=== PATIENT | female | born 2000 | race Caucasian/White ===

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

== ENCOUNTER 2021-01-20 12:05 | Inpatient (IN) | payer BC, MEDICAID, SELFPAY ==
[2021-01-20] VITALS (64 sets, daily range): BP systolic 116–152; BP diastolic 58–96; PULSE 82–185; RESP 18–20; TEMP 36.3–36.9; O2SAT 99–100; BMI 29.7
[2021-01-20 08:59] LABS: Amphetamines Screen Urine Negative (Negative); Barbiturates Screen Urine Negative (Negative); Benzodiazepines Screen Urine Negative (Negative); Cocaine Screen Urine Negative (Negative); Opiate Screen Urine Negative (Negative); PCP Screen Urine Negative (Negative); THC Screen Urine Negative (Negative)
[2021-01-20 09:07] LABS: Basophils # 0.1 10^3/uL (0.0-0.1); Basophils % 0.4 %; Eosinophils # 0.1 10^3/uL (0.0-0.8); Eosinophils % 0.4 %; Hematocrit 36.4 % (37.0-47.0); Hemoglobin 11.9 g/dL (11.5-15.3); Lymphocytes # 2.1 10^3/uL (1.5-6.5); Lymphocytes % 11.4 %; Mean Corpuscular HGB Conc 32.7 g/dL (30.0-36.0); Mean Corpuscular Hemoglobin 26.2 pg (28.0-34.0); Mean Corpuscular Volume 80.2 fl (81-99); Mean Platelet Volume 9.9 fL (7.4-10.4); Monocytes # 0.8 10^3/uL (0.2-0.9); Monocytes % 4.5 %; Neutrophils # 15.07 10^3/uL (1.8-8.0); Neutrophils % 82.5 %; Nucleated Red Blood Cells % 0 %; Platelet Count 254 10^3/cmm (130-400); Red Blood Count 4.54 10^6/uL (4.1-5.3); Red Cell Distribution Width 13.5 % (12.1-15.1); White Blood Count 18.3 10^3/uL (4.5-13.0)
[2021-01-20] MEDS: lactated ringers 1,000 ML 999 ML IV ×2 (10:30→10:31)
--- NOTE | 2021-01-20 12:17 | P.ANESASSM_ITS ---
Pre-Anesthetic Assessment Pre-Anesthetic Assessment: Height/Weight: Height 1.8 m Weight 96.615 kg Temp Pulse Resp BP Pulse Ox 97.3 F L 85 18 123/69 100 01/20/21 11:26 01/20/21 12:05 01/20/21 08:30 01/20/21 12:05 01/20/21 10:57 Preop Diagnosis: IUp Proposed Procedure: epidural Familial anesthetic complications: none Was Beta Jose A taken within 24 hours: N/A Was Clonidine taken within 24 hours: N/A Last intake: drinking water Social: Social History: No alcohol and No tobacco Exam: Pre-Anes Outpt Exam: alert, oriented x 3, clear to auscultation bilaterally and regular rate & rhythm Airway: Cervical ROM: WNL MP: 2 Dentition: Full Anesthetic Plan: ASA status: 2 Anesthesia: Regional (specify below) Risk of > 500 ml blood loss (7ml/kg in children): No Meds/Allergies Current Medications: Current Medications Generic Name Dose Route Start Last Admin Trade Name Freq PRN Reason Stop Dose Admin Ropivacaine 200 mg in 100 mls @ 13 mls/hr 01/20/21 09:15 01/20/21 10:30 Naropin Premix EPIDURAL 13 mls/hr .[id number] YAZMIN Administration Lactated Ringer's 1,000 mls @ 999 m ls/hr 01/20/21 09:06 01/20/21 10:31 Lactated Ringers IV 999 mls/hr .Q1H1M PRN Administration See label comment s PFSH Anesthesia PFSH: Medical History (Updated 01/09/20 @ 16:36 by Olya Dodge APN, KARIN) Hypothyroidism managed by pcp No pertinent past medical history neghx: htn,dm,dvt/pe Pelvic pain Surgical History No history of previous surgery Family History Grandmother Cancer PGM- BREAST CA Mother Hyperlipidemia Hypertension Stroke Family history of thyroid problem Family history of premature coronary artery disease Grandfather Family history of thyroid problem Maternal grandfather Family/Other Family history of thyroid problem Maternal uncle Denies family history of Dementia Social History Additional social history: - Tobacco use: current everyday smoker e-cigarettes Alcohol use: Denies Drug use: Denies Female Reproductive History: : 1 Data Anesthesia CBC & Chem 7: 01/20/21 08:55 Other Labs: Laboratory Results - last 48 hr 01/20/21 01/20/21 08:15 08:55 WBC 18.3 H RBC 4.54 Hgb 11.9 Hct 36.4 L MCV 80.2 L MCH 26.2 L MCHC 32.7 RDW 13.5 Plt Count 254 MPV 9.9 Neut % (Auto) 82.5 Lymph % (Auto) 11.4 [place] % (Auto) 4.5 Eos % (Auto) 0.4 Baso % (Auto) 0.4 Neut # (Auto) 15.07 H Lymph # (Auto) 2.1 [place] # (Auto) 0.8 Eos # (Auto) 0.1 Baso # (Auto) 0.1 Nucleated RBC % (auto) 0 Nucleated RBCs # 0.0 Urine Opiates Screen Negative Ur Barbiturates Screen Negative Ur Phencyclidine Scrn Negative Ur Amphetamines Screen Negative U Benzodiazepines Scrn Negative Urine Cocaine Screen Negative U Marijuana (THC) Screen Negative Cardiac Studies: No Data to Display
--- NOTE | 2021-01-20 12:17 | ANES.PROC ---
Anesthesia Procedures Procedure/Date: 01/20/21 Epidural: Time Out Performed: Yes Consents Signed: Procedure Consent and NPO Consent Consent: requested by attending/covering physician, from patient, risks and benefits reviewed and patient agrees to proceed Lumbar Level: L3-L4 Epidural position: sitting Epidural procedure: sterile prep of area, 1% lidocaine to numb the area, 18 g needle, negative for paresthesia passed, neg for paresthesia, test dose given, 1.5% xylocaine 1:200k epi (5 cc), 0.2% Ropivacaine bolus ml (5 cc), placed PCEA, no systemic response, sterile dressing applied, L.U.D. no apparent complications and 0.2% Ropiavacaine @ mls/hr (13) Additional Comments: KIRK at 7 cm, threaded to 13 cm
[2021-01-20] MEDS: oxytocin 30 UNIT/500 ML BAG 600 UNIT IV (14:09)
--- NOTE | 2021-01-20 14:12 | PM.DELIVERY ---
Delivery Note: Date of delivery: January 20, 2021 This 20-year-old 1 now para 1 female with an EDC of 01/22/2021 had spontaneous onset of labor early this morning. She came to [facility] OB department this morning and was approximately 1-1/2 cm dilated. She was 90% effaced and -2 station. She labored throughout the morning to the early afternoon. She did receive epidural anesthesia with good results and comfort. She dilated complete cervical dilatation and delivered by spontaneous vaginal delivery at a little after 2 PM. There was spontaneous rupture membranes with moderate meconium stained fluid. The heart tones were reassuring throughout the labor and delivery process. She was able deliver by spontaneous vaginal livery healthy, viable male . Apgars were 4, 8 and 9 at 1, 5 and 10 minutes respectively. The required suctioning and oxygen for a few minutes. There was a somewhat tight vaginal band which was cut but there was no episiotomy. She did have a surgical closure in the vagina area using 3-0 Vicryl suture without problems. There was good uterine tone with no significant bleeding . Estimated blood loss proximal 153 mL. There were no complications. Pre-Delivery Course: This patient was followed by this physician throughout her course. She had no major concerns or problems. Maternal blood type was A+ with antibody screen negative. Rubella is immune group B strep was negative. Covid was also negative. Delivery: Spontaneous vaginal delivery. Post-Delivery Status: Patient is doing well and will be followed for routine postdelivery care. A&P Assessment and plan (1) Normal spontaneous vaginal delivery: Patient is doing well and will be followed for routine postdelivery care. We will adjust orders as necessary. 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
[2021-01-20] MEDS: ibuprofen 800 mg tablet PO (20:56)
[2021-01-21 03:40] VITALS: BP 135/80; PULSE 97
[2021-01-21 03:50] LABS: Hematocrit 31.1 % (37.0-47.0); Mean Corpuscular HGB Conc 32.2 g/dL (30.0-36.0); Mean Corpuscular Hemoglobin 26.5 pg (28.0-34.0); Mean Corpuscular Volume 82.5 fl (81-99); Mean Platelet Volume 9.7 fL (7.4-10.4); Platelet Count 204 10^3/cmm (130-400); Red Blood Count 3.77 10^6/uL (4.1-5.3); Red Cell Distribution Width 13.6 % (12.1-15.1); White Blood Count 13.4 10^3/uL (4.5-13.0)
--- NOTE | 2021-01-21 07:19 | PM.OBGYDC ---
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 She delivered early yesterday afternoon by spontaneous vaginal delivery healthy, viable male infant. Since delivery, she has done extremely well. Has had just mild lochia with no significant cramps or bleeding. The infant is breast-feeding well. She is felt to be stable for discharge this afternoon after 's metabolic screen is accomplished. Information Peripartum Data: Infant Delivery Method: Vaginal Physical Exam Const: COMMON NORMALS: no acute distress and healthy appearing GENERAL APPEARANCE: cooperative and comfortable HENMT: COMMON NORMALS: moist oral mucous membranes Chest: COMMONS NORMALS: normal inspection of the chest Resp: COMMON NORMALS: normal respiratory effort, No retractions, No use of accessory muscles and clear to auscultation bilaterally AUSCULTATION: clear to auscultation bilaterally Cardio: COMMON NORMALS: regular rate and regular rhythm RATE: regular rate RHYTHM: regular rhythm GI: COMMON NORMALS: Normal to inspection, nondistended, normoactive bowel sounds present and Soft to palpation (Fundus is firm and well below the umbilicus.) PALPATION: Yes Soft to palpation (Fundus is firm and well below the umbilicus.) Extremity: COMMON NORMALS: normal to inspection, full ROM and no clubbing, cyanosis or edema Neuro: COMMON NORMALS: CN's II-XII intact bilaterally, moves all extremities, no focal motor deficits and no sensory deficits noted Psych: COMMON NORMALS: mental status grossly normal, cooperative and normal affect Skin: COMMON NORMALS: no rashes or lesions noted GENERAL SKIN EXAM: no rashes or lesions noted Urinary Catheter Management^: Gonzalez: Cath Placed During This Visit: yes Urinary Catheter Date of Insertion: 01/20/21 Urinary Catheter Time of Insertion: 11:00 Discharge Data Data Completed and Pending: Labs from last 24 hours 01/21/21 01/20/21 01/20/21 03:40 08:55 08:15 WBC 13.4 H 18.3 H RBC 3.77 L 4.54 Hgb 10.0 L 11.9 Hct 31.1 L 36.4 L MCV 82.5 80.2 L MCH 26.5 L 26.2 L MCHC 32.2 32.7 RDW 13.6 13.5 Plt Count 204 254 MPV 9.7 9.9 Neut % (Auto) 82.5 Lymph % (Auto) 11.4 [place] % (Auto) 4.5 Eos % (Auto) 0.4 Baso % (Auto) 0.4 Neut # (Auto) 15.07 H Lymph # (Auto) 2.1 [place] # (Auto) 0.8 Eos # (Auto) 0.1 Baso # (Auto) 0.1 Nucleated RBC % (a uto) 0 Nucleated RBCs # 0.0 Urine Opiates Scre en Negative Ur Barbiturates Sc reen Negative Ur Phencyclidine S crn Negative Ur Amphetamines Sc reen Negative U Benzodiazepines Scrn Negative Urine Cocaine Scre en Negative U Marijuana (THC) Screen Negative Vitals: Last Vital Signs Temp 97.7 F 01/20/21 15:55 Pulse 97 01/21/21 03:40 Resp 20 H 01/20/21 14:11 BP 135/80 01/21/21 03:40 Pulse Ox 100 01/20/21 10:57 Discharge Plan Discharge Patient Disposition: Home Condition: Stable Prescriptions: New docusate sodium 100 mg Capsule 100 mg PO BID Qty: 60 RF: 1 ibuprofen 800 mg Tablet 800 mg PO TID Qty: 90 RF: 1 Lanolin (HPA) 100 % Cream 1 applic topical PRN PRN (Reason: Dryness) Qty: 90 RF: 1 -U 106.5-1 mg Capsule 1 cap PO DAILY Qty: 90 RF: 1 Discontinued norgestimate-ethinyl estradiol [Sprintec (28)] 0.25-35 mg-mcg tablet 1 tab PO QDAY Qty: 84 RF: 3 Discharge Orders: Discharge Order (Routine); Ordered 01/21/21 Ordered By: Juan Rodriguez Referrals: Juan Rodriguez MD [Primary Care Provider] - 6 Weeks Discharge Diet: Usual diet Discharge Activity: Resume usual activity Patient Instructions: Opioid Safety Discharge Attestations 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
[2021-01-21 08:49] VITALS: BP 131/84; PULSE 109; TEMP 36.5
[2021-01-21] MEDS: docusate sodium 100 mg Capsule PO (12:36)
[2021-01-21] MEDS: ibuprofen 800 mg tablet PO (12:37)
[2021-01-21] MEDS: prenatal vitamin Capsule 1 CAP PO (12:37)
[2021-01-21 12:39] VITALS: BP 129/70; PULSE 99; TEMP 36.6
--- NOTE | 2021-01-21 14:17 | ANE.PACU2 ---
Inpatient post-anesthesia follow up: Airway intact: Yes Vital signs: Temperature 98.1 F Pulse Rate 87 Respiratory Rate 18 Blood Pressure 134/67 Pulse Oximetry 100 Oxygen Delivery Me thod Room Air Oxygen Flow Rate Fraction of Inspir ed Oxygen Hydration adequate: Yes Pain level: 1 Mental status: Baseline
[2021-01-21 15:15] VITALS: TEMP 36.7
[2021-01-21 15:16] VITALS: BP 134/67; PULSE 87
[2021-01-21 16:13] VITALS: BP 134/67; PULSE 87; RESP 18
== END 2021-01-21 15:50 | disposition home or self-care (01) | DRG 806 ==
LOC: OPOB 14:34 → OBGYN 14:36
PROVIDERS: Admitting Provider Family Medicine; PCP Family Medicine; Visit Provider Family Medicine
DX: O77.0 Labor and delivery complicated by meconium in amniotic fluid (principal); O71.4 Obstetric high vaginal laceration alone; Z37.0 Single live birth; O99.334 Smoking (tobacco) complicating childbirth; F17.210 Nicotine dependence, cigarettes, uncomplicated; Z3A.39 39 weeks gestation of pregnancy
CPT/HCPCS: 36415; 51702; 59025; 59409; 80306; 85025; 85027; 99211; G0379; J2795

== ENCOUNTER 2022-03-22 23:20 | Emergency (ER) | payer BC, MEDICAID, SELFPAY ==
[2022-03-22 23:28] VITALS: BP 122/91; PULSE 107; RESP 20; TEMP 36.6; O2SAT 100; BMI 23.6
[2022-03-22] MEDS: sodium chloride 0.9% 1,000 ML 999 ML IV (23:53)
[2022-03-22] MEDS: ondansetron 2 mg/ML SDV 2 mL 4 MG IVP (23:53)
[2022-03-22 23:54] LABS: Basophils # 0.1 10^3/uL (0.0-0.1); Basophils % 0.4 %; Eosinophils # 0.1 10^3/uL (0.0-0.8); Eosinophils % 0.5 %; Hematocrit 42.7 % (37.0-47.0); Hemoglobin 13.9 g/dL (11.5-15.3); Lymphocytes # 3.9 10^3/uL (1.5-6.5); Lymphocytes % 29.6 %; Mean Corpuscular HGB Conc 32.6 g/dL (30.0-36.0); Mean Corpuscular Hemoglobin 26.2 pg (28.0-34.0); Mean Corpuscular Volume 80.6 fl (81-99); Monocytes # 0.6 10^3/uL (0.2-0.9); Monocytes % 4.7 %; Neutrophils % 64.6 %; Nucleated Red Blood Cells % 0 %; Platelet Count 236 10^3/cmm (130-400); Red Cell Distribution Width 13.2 % (12.1-15.1); White Blood Count 13.3 10^3/uL (4.5-13.0)
[2022-03-23 00:02] VITALS: BP 118/65; PULSE 77; RESP 16; O2SAT 98
--- NOTE | 2022-03-23 00:12 | ED_ITS ---
HPI - Nausea/Vomiting/Diarrhea General: Chief complaint: Nausea/Vomiting/Diarrhea Stated complaint: N/V/Abd Pain Time Seen by Provider: 03/22/22 23:36 History of Present Illness: Patient is a 21-year-old female comes to the ED with nausea and vomiting. Patient does state that she is currently 5 weeks . She denies any abdominal pain or cramping or any vaginal bleeding or discharge. Denies any dysuria or hematuria. Her symptoms of nausea vomiting started approximately 3 days ago. She has not been able to keep any food or fluids down since onset of symptoms. She has 5-6 episodes of emesis a day for the past couple days. She started to feel dehydrated and weak. Denies any fevers but endorses chills. Denies any known sick contacts and has not been around anybody who has had similar symptoms. Endorses diarrhea that started today and she is only had 2 episodes of diarrhea. Last menstrual period was February 03. Associated nausea: Yes Associated symtoms: Reports nausea; Denies change in vision, chest pain, dysuria, fatigue, headache(s) or palpitations Review of Systems Const: Denies: fever(s), chills or fatigue Eyes: Denies: change in vision or eye discomfort ENMT: Denies: throat pain, odynophagia, nasal discharge or nasal congestion Card: Denies: chest pain, palpitations, edema, swelling of feet/ankles, dyspnea on exertion or orthopnea Resp: Denies: dyspnea, productive cough or non-productive cough GI: Reports: nausea, vomiting and diarrhea; Denies: abdominal pain, constipation or hematochezia : Denies: flank pain, dysuria, hematuria, vaginal bleeding or vaginal discharge Musc: Denies: neck pain, back pain or extremity swelling Skin/Breast: Denies: rash or new lesions Neuro: Denies: headache(s), numbness in extremities or weakness in extremities PFSH ED PFSH: Medical History Hypothyroidism managed by pcp No pertinent past medical history neghx: htn,dm,dvt/pe Pelvic pain Surgical History No history of previous surgery Family History Grandmother Cancer PGM- BREAST CA Mother Hyperlipidemia Hypertension Stroke Family history of thyroid problem Family history of premature coronary artery disease Grandfather Family history of thyroid problem Maternal grandfather Family/Other Family history of thyroid problem Maternal uncle Denies family history of Dementia Social History Additional social history: - Tobacco use: current everyday smoker e-cigarettes Alcohol use: Denies Drug use: Denies Physical Exam Const: COMMON NORMALS: no acute distress, patient oriented x3, healthy appearing and alert GENERAL APPEARANCE: cooperative and comfortable HENMT: COMMON NORMALS: normocephalic HEAD & SCALP: normocephalic MOUTH: Normal oral and palatal mucosa present THROAT: posterior oropharynx normal and uvula midline Neck/C-Spine: COMMON NORMALS: supple GENERAL: Yes normal visual inspection Resp: COMMON NORMALS: normal respiratory effort, No retractions, No use of accessory muscles and clear to auscultation bilaterally AUSCULTATION: clear to auscultation bilaterally Cardio: COMMON NORMALS: regular rate, regular rhythm, S1 normal heart sound present, S2 normal heart sound present, No gallops present (Cardio), No clicks present (Cardio), No murmurs present (Cardio) and Peripheral pulses 2+ throughout RATE: regular rate RHYTHM: regular rhythm HEART SOUNDS: S1 normal heart sound present and S2 normal heart sound present PERIPHERAL PULSES: Peripheral pulses 2+ throughout GI: COMMON NORMALS: Normal to inspection, nondistended, normoactive bowel sounds present, Soft to palpation, non-tender and no masses PALPATION: Yes Soft to palpation : COMMON NORMALS: Yes no CVA tenderness BLADDER/KIDNEY EXAM: Yes no CVA tenderness Back/Pelvis: COMMON NORMALS: no CVA tenderness Extremity: COMMON NORMALS: normal to inspection Neuro: COMMON NORMALS: patient oriented x3 SENSORIUM/ORIENTATION: Yes alert GAIT: Yes Normal gait present Skin: GENERAL SKIN EXAM: dry skin Course Vital Signs: Vital signs: Vital Signs Temperature 98 F 03/22/22 23:28 Pulse Rate 77 03/23/22 00:02 Respiratory Rate 16 03/23/22 00:02 Blood Pressure 118/65 03/23/22 00:02 Pulse Oximetry 98 03/23/22 00:02 Oxygen Delivery Me thod 03/23/22 00:02 MDM - Nausea/Vomiting/Diarrhea Medical Decision Making Patient is a 21-year-old female comes to the ED with nausea and vomiting. Patient does state that she is currently 5 weeks . She denies any abdominal pain or cramping or any vaginal bleeding or discharge. Denies any dysuria or hematuria. Her symptoms of nausea vomiting started approximately 3 days ago. She has not been able to keep any food or fluids down since onset of symptoms. She has 5-6 episodes of emesis a day for the past couple days. Vitals are stable. Exam of patient is benign and she appears nontoxic and in no acute distress or pain. CBC and CMP are unremarkable. UA was unremarkable. hCG quant was 15,580. Patient was given 1 L of IV fluids here in the ED and also Zofran and Reglan. She was feeling a lot better and able to keep down p.o. fluids here in the ED. She was diagnosed with nausea and vomiting during and was discharged home with a prescription for Reglan. Return to ED precautions given. Follow-up with PCP in the next week for reevaluation. Patient understood and agreed with plan. Lab Data I reviewed the patient's lab results. 03/22/22 23:45 03/22/22 23:45 Laboratory Results WBC 13.3 10^3/uL (4.5-13.0) H 03/22/22 23:45 RBC 5.30 10^6/uL (4.1-5.3) 03/22/22 23:45 Hgb 13.9 g/dL (11.5-15.3) 03/22/22 23:45 Hct 42.7 % (37.0-47.0) 03/22/22 23:45 MCV 80.6 fl (81-99) L 03/22/22 23:45 MCH 26.2 pg (28.0-34.0) L 03/22/22 23:45 MCHC 32.6 g/dL (30.0-36.0) 03/22/22 23:45 RDW 13.2 % (12.1-15.1) 03/22/22 23:45 Plt Count 236 10^3/cmm (130-400) 03/22/22 23:45 MPV 9.0 fL (7.4-10.4) 03/22/22 23:45 Neut % (Auto) 64.6 % 03/22/22 23:45 Lymph % (Auto) 29.6 % 03/22/22 23:45 [place] % (Auto) 4.7 % 03/22/22 23:45 Eos % (Auto) 0.5 % 03/22/22 23:45 Baso % (Auto) 0.4 % 03/22/22 23:45 Neut # (Auto) 8.60 10^3/uL (1.8-8.0) H 03/22/22 23:45 Lymph # (Auto) 3.9 10^3/uL (1.5-6.5) 03/22/22 23:45 [place] # (Auto) 0.6 10^3/uL (0.2-0.9) 03/22/22 23:45 Eos # (Auto) 0.1 10^3/uL (0.0-0.8) 03/22/22 23:45 Baso # (Auto) 0.1 10^3/uL (0.0-0.1) 03/22/22 23:45 Nucleated RBC % (auto) 0 % 03/22/22 23:45 Nucleated RBCs # 0.0 /100WBC 03/22/22 23:45 Sodium 136 mmol/L (136-145) 03/22/22 23:45 Potassium 3.4 mmol/L (3.5-5.1) L 03/22/22 23:45 Chloride 101 mmol/L (98-107) 03/22/22 23:45 Carbon Dioxide 22 mmol/L (22-29) 03/22/22 23:45 Anion Gap 16.4 (5-19) 03/22/22 23:45 BUN 8 mg/dL (6-20) 03/22/22 23:45 Creatinine 0.4 mg/dL (0.5-0.9) L 03/22/22 23:45 GFR Calculation 203.5 mL/min (90-130) H 03/22/22 23:45 Glucose 82 mg/dL (65-115) 03/22/22 23:45 Calculated Osmolality 279 mOsm/kg (285-295) L 03/22/22 23:45 Calcium 9.6 mg/dL (8.5-10.5) 03/22/22 23:45 Total Bilirubin 0.7 mg/dL (0.15-1.2) 03/22/22 23:45 AST 11 U/L (0-32) 03/22/22 23:45 ALT 7 U/L (0-33) 03/22/22 23:45 Alkaline Phosphatase 72 U/L (35-105) 03/22/22 23:45 Total Protein 7.5 g/dL (6.6-8.7) 03/22/22 23:45 Albumin 4.7 g/dL (3.5-5.2) 03/22/22 23:45 Globulin 2.8 g/dL (1.3-4.6) 03/22/22 23:45 Lipase 15 U/L (13-60) 03/22/22 23:45 HCG, Qual Positive (Negative) H 03/22/22 23:45 Ser , Semi-Qnt 10355.00 mIU/mL 03/22/22 23:45 Urine Color Yellow (Yellow) 03/23/22 01:40 Urine Appearance Clear (CLEAR) 03/23/22 01:40 Urine pH 6.5 (5-7) 03/23/22 01:40 Ur Specific [place] 1.015 (1.005-1.030) 03/23/22 01:40 Urine Protein Neg (Negative) 03/23/22 01:40 Urine Glucose (UA) Norm (Normal) 03/23/22 01:40 Urine Ketones 2+ (Negative) H 03/23/22 01:40 Urine Blood Neg (Negative) 03/23/22 01:40 Urine Nitrate Negative (Negative) 03/23/22 01:40 Urine Bilirubin Neg (Negative) 03/23/22 01:40 Urine Urobilinogen 1 mg/dL (Negative) H 03/23/22 01:40 Ur Leukocyte Esterase Negative (Negative) 03/23/22 01:40 Discharge Plan Discharge Patient Disposition: Home Clinical Impression: Nausea and vomiting during Condition: Stable Prescriptions: New Reglan 10 mg tablet 10 mg PO Q6H PRN (Reason: nausea and vomiting) Qty: 20 0RF No Action ibuprofen 800 mg Tablet 800 mg PO TID Qty: 90 1RF docusate sodium 100 mg Capsule 100 mg PO BID Qty: 60 1RF -U 106.5-1 mg Capsule 1 cap PO DAILY Qty: 90 1RF Lanolin (HPA) 100 % Cream 1 applic topical PRN PRN (Reason: Dryness) Qty: 90 1RF Discharge Orders: Discharge ED (Routine); Ordered 03/23/22 Ordered By: Alli Jeffries Referrals: Juan Rodriguez MD [Primary Care Provider] - Discharge Diet: Regular Discharge Activity: Resume usual activity Patient Instructions: Nausea and Vomiting in (ED) Activity Restrictions/Additional Instructions: Follow-up with medical provider as directed in the next 5 to 7 days reevaluat ion. Take medications as prescribed. Return to the ER or your medical provider if condition worsens. Please read and understand discharge instructions. Thank you for choosing [facility] for your healthcare needs today. Please realize this is an emergency room and that we are providing you with a medical screening exam and this may not be complete and all inclusive of all the testing and or work up that you may need to determine your ailment or severity of your illness. It is very important that you follow up as instructed or that you return to the Emergency Department should you have concerns or if your condition changes or worsens in any way. Coding Level of Care Code ED Corrections Cadet for Deirdreg Fwd Exam Comprehensive
[2022-03-23 00:14] LABS: Alanine Aminotransferase 7 U/L (0-33); Albumin Level 4.7 g/dL (3.5-5.2); Alkaline Phosphatase 72 U/L (35-105); Anion Gap 16.4 (5-19); Aspartate Amino Transferase 11 U/L (0-32); Blood Urea Nitrogen 8 mg/dL (6-20); Calcium 9.6 mg/dL (8.5-10.5); Carbon Dioxide 22 mmol/L (22-29); Chloride 101 mmol/L (98-107); Globulin 2.8 g/dL (1.3-4.6); Glomerular Filtration Rate 203.5 mL/min (90-130); Glucose 82 mg/dL (65-115); Lipase 15 U/L (13-60); Osmolality Calculated 279 mOsm/kg (285-295); Potassium 3.4 mmol/L (3.5-5.1); Sodium 136 mmol/L (136-145); Total Bilirubin 0.7 mg/dL (0.15-1.2); Total Protein 7.5 g/dL (6.6-8.7)
[2022-03-23 00:16] LABS: HCG, Serum Qual Positive (Negative)
[2022-03-23] MEDS: metoclopramide 5 mg/mL SDV 2 mL 10 MG IVP (00:59)
[2022-03-23 01:51] LABS: Add Urine Microscopic? NO; Charge for UA Resulting for Rev
[2022-03-23 02:06] LABS: Bilirubin Urine Neg (Negative); Blood Urine Neg (Negative); Glucose Urine UA Norm (Normal); Ketones Urine 2+ (Negative); Leukocyte Esterase Urine Negative (Negative); Nitrate Urine Negative (Negative); Protein Urine Neg (Negative); Specific Gravity, Urine 1.015 (1.005-1.030); Urine Appearance Clear (CLEAR); Urine Color Yellow (Yellow); Urobilinogen Urine 1 mg/dL (Negative); pH Urine 6.5 (5-7)
[2022-03-23 02:23] VITALS: BP 120/67; PULSE 86; RESP 14; O2SAT 100
== END 2022-03-23 02:20 | disposition home or self-care (01) ==
PROVIDERS: Emergency Provider Physician Assistant; PCP Family Medicine
DX: O21.9 Vomiting of pregnancy, unspecified (principal); Z3A.01 Less than 8 weeks gestation of pregnancy; O99.331 Smoking (tobacco) complicating pregnancy, first trimester; F17.290 Nicotine dependence, other tobacco product, uncomplicated
CPT/HCPCS: 80053; 81003; 83690; 84702; 84703; 85025; 96361; 96374; 96375; 99284; J2405; J2765; J7030

== ENCOUNTER → 2022-04-28 15:24 | Outpatient (BNVA) | payer BC, MEDICAID, SELFPAY | PROVIDERS: PCP Family Medicine; Visit Provider Nurse Practitioner Women's Health | DX: Z34.90 Encounter for supervision of normal pregnancy, unspecified, unspecified trimester (principal) | CPT/HCPCS: 81000 ==

== ENCOUNTER → 2022-05-15 16:00 | Outpatient (BNVA) | payer BC, MEDICAID, SELFPAY | PROVIDERS: PCP Family Medicine; Visit Provider Nurse Practitioner Women's Health | DX: Z34.90 Encounter for supervision of normal pregnancy, unspecified, unspecified trimester (principal); E03.9 Hypothyroidism, unspecified | CPT/HCPCS: 80307; 81000; 84443; 85027; 86592; 86762; 86803; 86850; 86900; 87086; 87340; 87491; 87591; 87661; 87806 ==

== ENCOUNTER → 2022-05-25 07:36 | Outpatient (BNVA) | payer BC, MEDICAID, SELFPAY | PROVIDERS: PCP Family Medicine; Visit Provider Nurse Practitioner Women's Health | DX: Z34.90 Encounter for supervision of normal pregnancy, unspecified, unspecified trimester (principal) | CPT/HCPCS: 81000; 81511; 87806 ==

== ENCOUNTER → 2022-06-25 14:40 | Outpatient (BNVA) | payer BC, MEDICAID, SELFPAY | PROVIDERS: PCP Family Medicine; Visit Provider Obstetrics & Gynecology | DX: Z34.90 Encounter for supervision of normal pregnancy, unspecified, unspecified trimester (principal) | CPT/HCPCS: 81000 ==

== ENCOUNTER 2022-07-19 15:51 | Outpatient (CLI) | payer BC, MEDICAID, SELFPAY ==
[2022-07-19 15:52] VITALS: BMI 23.0
[2022-07-19 15:56] VITALS: PULSE 97; O2SAT 99
[2022-07-19 16:01] VITALS: BP 116/68; PULSE 103
== END 2022-07-19 16:15 | disposition home or self-care (01) ==
LOC: OPOB 15:51 → OBGYN 15:52
PROVIDERS: PCP Family Medicine; Visit Provider Obstetrics & Gynecology
DX: O26.899 Other specified pregnancy related conditions, unspecified trimester (principal); Z3A.00 Weeks of gestation of pregnancy not specified; W19.XXXA Unspecified fall, initial encounter
CPT/HCPCS: 99211

== ENCOUNTER 2022-07-19 16:17 | Emergency (ER) | payer BC, MEDICAID, SELFPAY ==
[2022-07-19 16:25] VITALS: BP 114/75; PULSE 93; RESP 16; TEMP 37.1; O2SAT 100
--- NOTE | 2022-07-19 17:11 | W.ED.FALL ---
HPI - Fall General: Chief Complaint: Fall Stated Complaint: two falls this week, 23 weeks Time Seen by Provider: 07/19/22 17:10 History of Present Illness: 21-year-old female comes in today for concerns of frequent falls. Patient was first evaluated in the obstetrical unit due to being 23 weeks . was normal without any signs of serious injury and patient was referred to the ER for further evaluation. Patient complains of right lateral foot pain, and right hip pain. Patient reports bruising to the right hip. But is ambulatory without difficulty. Patient also has pain to the right lateral foot which makes it difficult for her to walk. Patient also reports a headache that has been persistent since her fall 2 days ago. Patient has had no other falls since then but had one earlier in the week. Patient reports some lightheadedness at times. Patient does continue to have some nausea and vomiting due to her . Associated symptoms-after fall: Reports headache(s); Denies chest pain Review of Systems General: Reports: 10 or more systems reviewed and unremarkable except in HPI and below Const: Denies: fever(s) Card: Denies: chest pain Resp: Denies: dyspnea GI: Reports: nausea and vomiting; Denies: diarrhea or constipation : Denies: difficulty voiding Musc: Reports: extremity pain Skin/Breast: Denies: pruritus Neuro: Reports: headache(s) [facility] ED PFSH: Medical History Hypothyroidism managed by pcp-- has not been on medication since 2019. No pertinent past medical history neghx: htn,dm,dvt/pe Pelvic pain Surgical History No history of previous surgery Family History Grandmother Breast cancer Mother Hyperlipidemia Hypertension Stroke Family history of thyroid problem Family history of premature coronary artery disease Grandfather Family history of thyroid problem Maternal grandfather Family/Other Family history of thyroid problem Maternal uncle Physical Exam Const: COMMON NORMALS: alert HENMT: COMMON NORMALS: normocephalic, atraumatic, TM's normal bilaterally and Normal external nose present HEAD & SCALP: normocephalic and atraumatic NOSE: Normal external nose present TYMPANIC MEMBRANE: TM's normal bilaterally MOUTH: Normal oral and palatal mucosa present THROAT: posterior oropharynx normal Neck/C-Spine: COMMON NORMALS: full ROM Resp: COMMON NORMALS: normal respiratory effort and clear to auscultation bilaterally AUSCULTATION: clear to auscultation bilaterally Cardio: COMMON NORMALS: regular rate and regular rhythm RATE: regular rate RHYTHM: regular rhythm GI: INSPECTION: Yes normal to inspection Back/Pelvis: COMMON NORMALS: thoracic and lumbar spine normal to inspection Extremity: RIGHT LOWER EXTREMITY: Yes hip joint (Soft tissue tenderness, weightbearing, normal range of motion) and Yes foot & digits (Contusion proximal fifth metatarsal) Right foot and digits: Yes ROM Neuro: SENSORIUM/ORIENTATION: Yes alert Skin: COMMON NORMALS: no rashes or lesions noted GENERAL SKIN EXAM: no rashes or lesions noted Course Vital Signs: Vital signs: Vital Signs Temperature 98.7 F 07/19/22 16:25 Pulse Rate 91 07/19/22 17:16 Respiratory Rate 16 07/19/22 17:16 Blood Pressure 117/72 07/19/22 17:16 Pulse Oximetry 100 07/19/22 17:16 Oxygen Delivery Me thod 07/19/22 17:16 MDM - Fall Medical Decision Making 21-year-old female comes in today with complaints of 2 falls this week with the last one occurring 2 days ago. Patient has had headaches since the second fall. Patient is 23 weeks and has had persistent nausea and vomiting throughout her . Patient was first evaluated by [facility] and cleared of any abnormalities for . No focal neural deficits are noted. Patient denied any head injury or loss of consciousness. Patient does have some tenderness to the right hip on palpation lateral aspect. Patient also has some bruising to the right foot. Differential diagnosis includes fracture of the foot, dehydration, migraine headache, orthostatic hypotension, malingering. X-ray of the foot was unremarkable. Laboratory values noted some mild decrease in sodium and potassium station and may be some dehydration. Patient was given 1 L IV fluids. Patient was also treated for her headache with metoclopramide, diphenhydramine, and morphine 2 mg. Patient had improvement in symptoms and able to tolerate going home. No signs of severe illness was noted. Patient was stable and recommended to follow-up with primary care. Patient reported understanding agreed to plan. Lab Data 07/19/22 18:02 04/09/23 18:02 Radiology Impressions Foot X-Ray 07/19/22 17:24 IMPRESSION: No acute findings. Laboratory Results WBC 15.1 10^3/uL (4.5-13.0) H 07/19/22 18:02 RBC 4.34 10^6/uL (4.1-5.3) 07/19/22 18:02 Hgb 11.9 g/dL (11.5-15.3) 07/19/22 18:02 Hct 37.0 % (37.0-47.0) 07/19/22 18:02 MCV 85.3 fl (81-99) 07/19/22 18:02 MCH 27.4 pg (28.0-34.0) L 07/19/22 18: MCHC 32.2 g/dL (30.0-36.0) 07/19/22 18:02 RDW 13.2 % (12.1-15.1) 07/19/22 18:02 Plt Count 238 10^3/cmm (130-400) 07/19/22 18:02 MPV 9.2 fL (7.4-10.4) 07/19/22 18:02 Neut % (Auto) 70.8 % 07/19/22 18:02 Lymph % (Auto) 22.9 % 07/19/22 18:02 [place] % (Auto) 5.0 % 07/19/22 18:02 Eos % (Auto) 0.5 % 07/19/22 18:02 Baso % (Auto) 0.3 % 07/19/22 18:02 Neut # (Auto) 10.66 10^3/uL (1.8-8.0) H 07/19/22 18:02 Lymph # (Auto) 3.5 10^3/uL (1.5-6.5) 07/19/22 18:02 [place] # (Auto) 0.8 10^3/uL (0.2-0.9) 07/19/22 18:02 Eos # (Auto) 0.1 10^3/uL (0.0-0.8) 07/19/22 18:02 Baso # (Auto) 0.1 10^3/uL (0.0-0.1) 07/19/22 18:02 Nucleated RBC % (auto) 0 % 07/19/22 18: Nucleated RBCs # 0.0 /100WBC 07/19/22 18:02 Sodium 135 mmol/L (136-145) L 07/19/22 18:02 Potassium 3.3 mmol/L (3.5-5.1) L 07/19/22 18:02 Chloride 101 mmol/L (98-107) 07/19/22 18:02 Carbon Dioxide 22 mmol/L (22-29) 07/19/22 18:02 Anion Gap 15.3 (5-19) 07/19/22 18:02 BUN 5 mg/dL (6-20) L 07/19/22 18:02 Creatinine 0.4 mg/dL (0.5-0.9) L 07/19/22 18:02 GFR Calculation 203.5 mL/min (90-130) H 07/19/22 18:02 Glucose 69 mg/dL (65-115) 07/19/22 18:02 Calculated Osmolality 276 mOsm/kg (285-295) L 07/19/22 18:02 Calcium 8.9 mg/dL (8.5-10.5) 07/19/22 18:02 Total Bilirubin 0.2 mg/dL (0.15-1.2) 07/19/22 18:02 AST 9 U/L (0-32) 07/19/22 18:02 ALT 6 U/L (0-33) 07/19/22 18:02 Alkaline Phosphatase 70 U/L (35-105) 07/19/22 18:02 Total Protein 6.9 g/dL (6.6-8.7) 07/19/22 18: Albumin 4.1 g/dL (3.5-5.2) 07/19/22 18: Globulin 2.8 g/dL (1.3-4.6) 07/19/22 18:02 Urine Color Yellow (Yellow) 07/19/22 18:02 Urine Appearance Sl hazy (CLEAR) A 07/19/22 18:02 Urine pH 7 (5-7) 07/19/22 18:02 Ur Specific [place] 1.015 (1.005-1.030) 07/19/22 18:02 Urine Protein Neg (Negative) 07/19/22 18:02 Urine Glucose (UA) Norm (Normal) 07/19/22 18:02 Urine Ketones Negative (Negative) 07/19/22 18:02 Urine Blood Neg (Negative) 07/19/22 18:02 Urine Nitrate Negative (Negative) 07/19/22 18:02 Urine Bilirubin Neg (Negative) 07/19/22 18:02 Urine Urobilinogen Norm mg/dL (Negative) 07/19/22 18:02 Ur Leukocyte Esterase Negative (Negative) 07/19/22 18:02 Discharge Plan Discharge Patient Disposition: Home Clinical Impression: Dehydration Fall Qualifiers: Encounter type: initial encounter Qualified Code(s): W19.XXXA - Unspecified fall, initial encounter Contusion of hip, right Qualifiers: Encounter type: initial encounter Qualified Code(s): S70.01XA - Contusion of right hip, initial encounter Sprain of foot Qualifiers: Encounter type: initial encounter Laterality: right Qualified Code(s): S93.601A - Unspecified sprain of right foot, initial encounter Condition: Stable Prescriptions: New hydrocodone-acetaminophen 5-325 mg tablet 1 tab PO Q8H PRN (Reason: pain (scale score 7-10)) Qty: 6 0RF No Action ondansetron HCl 4 mg tablet 4 mg PO Q8H Discharge Orders: Discharge ED (Routine); Ordered 07/19/22 Ordered By: Bryon Lyn Referrals: Juan Rodriguez MD [Primary Care Provider] - Discharge Diet: Usual diet Discharge Activity: Increase activity as tolerated Patient Instructions: Nausea and Vomiting in (ED), Opioid Safety Activity Restrictions/Additional Instructions: Drink plenty of water and fluids. Healthy diet and activity. Use acetaminophen as needed for pain. Use hydrocodone for severe pain. Use an elastic wrap to the foot for comfort. Follow-up with primary care for further instruction. Return to ED for new concerns. Coding Level of Care Code ED Internal Control Manager for Ivett Martinez
[2022-07-19 17:16] VITALS: BP 111/67; BP 116/84; BP 117/72; PULSE 106; PULSE 85; PULSE 91; RESP 16; O2SAT 100
--- NOTE | 2022-07-19 17:24 | XRR_ITS ---
PROCEDURE INFORMATION: Exam: XR Right Foot Exam date and time: 07/19/2022 5:35 PM Age: 21 years old Clinical indication: Injury or trauma; Fall; Blunt trauma; Foot; Right; Additional info: Injury, preg+ TECHNIQUE: Imaging protocol: Radiologic exam of the right foot. Views: 3 or more views. COMPARISON: No relevant prior studies available. FINDINGS: Bones/joints: Normal. Soft tissues: Normal. XR/XR foot RT min 3V* [id number] IMPRESSION: No acute findings.
[2022-07-19 18:21] LABS: Basophils # 0.1 10^3/uL (0.0-0.1); Basophils % 0.3 %; Eosinophils # 0.1 10^3/uL (0.0-0.8); Eosinophils % 0.5 %; Hemoglobin 11.9 g/dL (11.5-15.3); Lymphocytes # 3.5 10^3/uL (1.5-6.5); Lymphocytes % 22.9 %; Mean Corpuscular HGB Conc 32.2 g/dL (30.0-36.0); Mean Corpuscular Hemoglobin 27.4 pg (28.0-34.0); Mean Corpuscular Volume 85.3 fl (81-99); Mean Platelet Volume 9.2 fL (7.4-10.4); Monocytes # 0.8 10^3/uL (0.2-0.9); Neutrophils # 10.66 10^3/uL (1.8-8.0); Neutrophils % 70.8 %; Nucleated Red Blood Cells % 0 %; Platelet Count 238 10^3/cmm (130-400); Red Blood Count 4.34 10^6/uL (4.1-5.3); Red Cell Distribution Width 13.2 % (12.1-15.1); White Blood Count 15.1 10^3/uL (4.5-13.0)
[2022-07-19] MEDS: metoclopramide 5 mg/mL SDV 2 mL 10 MG IVP (18:26)
[2022-07-19] MEDS: diphenhydrAMINE 50 mg/mL SDV 1mL 6.25 MG IVP (18:26)
[2022-07-19] MEDS: morphine 4 mg/mL SDV 1 mL 2 MG IVP (18:27)
[2022-07-19 18:33] LABS: Add Urine Microscopic? NO; Charge for UA Resulting for Rev
[2022-07-19 18:39] LABS: Alanine Aminotransferase 6 U/L (0-33); Albumin Level 4.1 g/dL (3.5-5.2); Alkaline Phosphatase 70 U/L (35-105); Anion Gap 15.3 (5-19); Aspartate Amino Transferase 9 U/L (0-32); Blood Urea Nitrogen 5 mg/dL (6-20); Calcium 8.9 mg/dL (8.5-10.5); Carbon Dioxide 22 mmol/L (22-29); Chloride 101 mmol/L (98-107); Globulin 2.8 g/dL (1.3-4.6); Glomerular Filtration Rate 203.5 mL/min (90-130); Glucose 69 mg/dL (65-115); Osmolality Calculated 276 mOsm/kg (285-295); Potassium 3.3 mmol/L (3.5-5.1); Sodium 135 mmol/L (136-145); Total Bilirubin 0.2 mg/dL (0.15-1.2); Total Protein 6.9 g/dL (6.6-8.7)
[2022-07-19 18:53] LABS: Bilirubin Urine Neg (Negative); Blood Urine Neg (Negative); Glucose Urine UA Norm (Normal); Ketones Urine Negative (Negative); Leukocyte Esterase Urine Negative (Negative); Nitrate Urine Negative (Negative); Protein Urine Neg (Negative); Specific Gravity, Urine 1.015 (1.005-1.030); Urine Appearance SL Hazy (CLEAR); Urine Color Yellow (Yellow); Urobilinogen Urine Norm (Negative); pH Urine 7 (5-7)
== END 2022-07-19 19:08 | disposition home or self-care (01) ==
PROVIDERS: Emergency Provider Nurse Practitioner Family; PCP Family Medicine
DX: O9A.212 Injury, poisoning and certain other consequences of external causes complicating pregnancy, second trimester (principal); S93.601A Unspecified sprain of right foot, initial encounter; S70.01XA Contusion of right hip, initial encounter; O26.892 Other specified pregnancy related conditions, second trimester; E86.0 Dehydration; Z3A.23 23 weeks gestation of pregnancy; W19.XXXA Unspecified fall, initial encounter
CPT/HCPCS: 36415; 73630; 80053; 81003; 85025; 96374; 96375; 99284; J1200; J2270; J2765

== ENCOUNTER → 2022-07-28 13:55 | Outpatient (BNVA) | payer BC, MEDICAID, SELFPAY | PROVIDERS: PCP Family Medicine; Visit Provider Nurse Practitioner Women's Health | DX: O09.899 Supervision of other high risk pregnancies, unspecified trimester (principal); O99.280 Endocrine, nutritional and metabolic diseases complicating pregnancy, unspecified trimester; E03.9 Hypothyroidism, unspecified; Z3A.00 Weeks of gestation of pregnancy not specified | CPT/HCPCS: 80051; 81000; 84443; 85025 ==

== ENCOUNTER → 2022-08-20 14:05 | Outpatient (BNVA) | payer BC, MEDICAID, SELFPAY | PROVIDERS: PCP Family Medicine; Visit Provider Obstetrics & Gynecology | DX: O09.899 Supervision of other high risk pregnancies, unspecified trimester (principal); Z3A.00 Weeks of gestation of pregnancy not specified | CPT/HCPCS: 81000; 82950; 85025 ==

== ENCOUNTER 2022-09-03 14:26 | Outpatient (CLI) | payer BC, MEDICAID, SELFPAY ==
[2022-09-03 14:38] VITALS: BP 135/79; PULSE 116
[2022-09-03 14:47] VITALS: RESP 16
--- NOTE | 2022-09-03 14:47 | US_ITS ---
WS: [id number] ULTRASOUND OB LIMITED TECHNIQUE: Limited ultrasound examination of the fetus. CLINICAL INFORMATION: Decreased movement COMPARISON: June 22, 2022 FINDINGS: Cervix is long and closed measuring 4.2 cm Single interuterine gestation. presentation is vertex Placental location is anterior. Placenta grade: 2 heart rate 144 BPM. Normal amniotic fluid volume. Biophysical profile 8 out of 8. breathin movement: 2 tone: 2 Amniotic fluid: 2 Normal biophysical profile 8 out of 8 US/US OB BPP wo NST [id number] IMPRESSION: 1. Normal biophysical profile 8 out of 8
[2022-09-03 14:52] VITALS: BP 126/76; PULSE 100
[2022-09-03 15:08] VITALS: BP 140/79; PULSE 100
[2022-09-03 15:22] VITALS: BP 123/72; PULSE 91
[2022-09-03 15:23] VITALS: BMI 23.0
== END 2022-09-03 15:56 | disposition home or self-care (01) ==
LOC: OPOB 14:27 → OBGYN 14:31
PROVIDERS: PCP Family Medicine; Visit Provider Obstetrics & Gynecology
DX: O36.8190 Decreased fetal movements, unspecified trimester, not applicable or unspecified (principal); Z3A.00 Weeks of gestation of pregnancy not specified
CPT/HCPCS: 59025; 76819; 81000; 99211

== ENCOUNTER 2022-09-16 16:55 | Outpatient (CLI) | payer BC, MEDICAID, SELFPAY ==
[2022-09-16 17:11] VITALS: BP 125/75; PULSE 104
[2022-09-16 17:16] VITALS: RESP 18
[2022-09-16 17:17] VITALS: BMI 23.3
[2022-09-16 17:28] VITALS: BP 103/69; PULSE 94
[2022-09-16] MEDS: acetaminophen 500 mg Tablet 1000 MG PO (17:35)
[2022-09-16] MEDS: lactated ringers 1,000 ML 999 ML IV (17:35)
[2022-09-16 18:51] LABS: Bilirubin Urine Neg (Negative); Blood Urine Neg (Negative); Glucose Urine UA Norm (Normal); Ketones Urine 3+ (Negative); Leukocyte Esterase Urine Negative (Negative); Nitrate Urine Negative (Negative); Protein Urine Neg (Negative); Urine Appearance Clear (CLEAR); Urine Color Yellow (Yellow); Urobilinogen Urine Norm (Negative); pH Urine 7 (5-7)
[2022-09-16 18:52] LABS: Add Urine Culture? No; Bacteria Urine TRACE /hpf; Mucus Urine 4+ /hpf; RBC Urine 0-4 /hpf (0-2); Squamous Epithelial Cell Urine 0-4 /hpf (0-5); WBC Urine 0-4 /hpf (0-5)
== END 2022-09-16 19:15 | disposition home or self-care (01) ==
LOC: OPOB 17:03 → OBGYN 17:05
PROVIDERS: Absent Provider Obstetrics & Gynecology; PCP Family Medicine; Visit Provider Obstetrics & Gynecology
DX: O26.899 Other specified pregnancy related conditions, unspecified trimester (principal); R11.2 Nausea with vomiting, unspecified; R19.7 Diarrhea, unspecified; R51.9 Headache, unspecified; Z3A.00 Weeks of gestation of pregnancy not specified
CPT/HCPCS: 59025; 81001; 99211; J7120

== ENCOUNTER → 2022-09-17 13:35 | Outpatient (BNVA) | payer BC, MEDICAID, SELFPAY | PROVIDERS: PCP Family Medicine; Visit Provider Obstetrics & Gynecology | DX: O09.899 Supervision of other high risk pregnancies, unspecified trimester (principal) | CPT/HCPCS: 81000 ==

== ENCOUNTER → 2022-10-01 14:20 | Outpatient (BNVA) | payer BC, MEDICAID, SELFPAY | PROVIDERS: PCP Family Medicine; Visit Provider Obstetrics & Gynecology | DX: O09.899 Supervision of other high risk pregnancies, unspecified trimester (principal) | CPT/HCPCS: 81000; 85025 ==

== ENCOUNTER → 2022-10-15 15:30 | Outpatient (BNVA) | payer BC, MEDICAID, SELFPAY | PROVIDERS: PCP Family Medicine; Visit Provider Obstetrics & Gynecology | DX: O09.899 Supervision of other high risk pregnancies, unspecified trimester (principal) | CPT/HCPCS: 81000; 87081; 87086 ==

== ENCOUNTER → 2022-10-22 15:36 | Outpatient (BNVA) | payer BC, MEDICAID, SELFPAY | PROVIDERS: PCP Family Medicine; Visit Provider Obstetrics & Gynecology | DX: O09.899 Supervision of other high risk pregnancies, unspecified trimester (principal) | CPT/HCPCS: 81000 ==

== ENCOUNTER → 2022-10-30 08:35 | Outpatient (BNVA) | payer BC, MEDICAID, SELFPAY | PROVIDERS: PCP Family Medicine; Visit Provider Obstetrics & Gynecology | DX: O09.899 Supervision of other high risk pregnancies, unspecified trimester (principal); R82.90 Unspecified abnormal findings in urine; Z3A.38 38 weeks gestation of pregnancy | CPT/HCPCS: 81000; 87086 ==

== ENCOUNTER 2022-10-31 05:33 | Inpatient (IN) | payer BC, MEDICAID, SELFPAY ==
[2022-10-31] VITALS (24 sets, daily range): BP systolic 105–138; BP diastolic 64–86; PULSE 56–112; RESP 14–18; TEMP 36.1–36.9; O2SAT 98–99; BMI 23.8
[2022-10-31 05:12] LABS: Protein Urine Neg (Negative); Specific Gravity, Urine 1.005 (1.005-1.030); Urine Appearance SL Hazy (CLEAR); Urine Color Yellow (Yellow); pH Urine 7 (5-7)
[2022-10-31 05:13] LABS: Bilirubin Urine Neg (Negative); Blood Urine 2+ (Negative); Glucose Urine UA Norm (Normal); Ketones Urine 2+ (Negative); Leukocyte Esterase Urine 2+ (Negative); Nitrate Urine Negative (Negative); RBC Urine 0-4 /hpf (0-2); Urobilinogen Urine Norm (Negative); WBC Urine 55-80 /hpf (0-5)
[2022-10-31 05:14] LABS: Add Urine Culture? Yes; Bacteria Urine TRACE /hpf
[2022-10-31 05:41] LABS: Basophils % 0.3 %; Eosinophils % 0.1 %; Hematocrit 35.5 % (37.0-47.0); Hemoglobin 11.5 g/dL (11.5-15.3); Lymphocytes # 2.4 10^3/uL (0.8-4.8); Lymphocytes % 16.2 %; Mean Corpuscular HGB Conc 32.4 g/dL (30.0-36.0); Mean Corpuscular Hemoglobin 26.6 pg (28.0-34.0); Monocytes # 0.9 10^3/uL (0.2-0.9); Monocytes % 6.1 %; Neutrophils # 11.16 10^3/uL (1.8-7.7); Neutrophils % 76.9 %; Nucleated Red Blood Cells % 0 %; Platelet Count 221 10^3/cmm (130-400); Red Blood Count 4.33 10^6/uL (4.1-5.3); Red Cell Distribution Width 12.5 % (12.1-15.1); White Blood Count 14.5 10^3/uL (4.0-10.0)
--- NOTE | 2022-10-31 05:55 | PM.OPHPUD ---
Labor & Delivery H&P Update Date of Procedure: October 31, 2022 Date H&P Performed: 10/30/22 H&P update information: I have reviewed H&P completed within last 30 days, I have examined patient prior to procedure and Changes to prior documentation as noted here Changes to previous documentation: The patient presents in active labor. Her cervix has changed to 6-7/90/0. She will be admitted for delivery Admission Diagnosis: Related Problem List Diagnoses (1) Supervision of other high-risk : (2) Hypothyroidism:
[2022-10-31] MEDS: oxytocin 30 UNIT/500 ML BAG 60 UNIT IV (06:15)
[2022-10-31] MEDS: dextrose 5%-lactated ringers 1,000 ML 125 ML IV (06:15)
--- NOTE | 2022-10-31 06:39 | PM.DELIVERY ---
Delivery Note: Date of delivery: October 31, 2022 Pre-delivery diagnoses: iup@ 38w2d, active labor Post-delivery diagnoses: same-delivered Procedure: Delivering Physician: Brayan Estimated blood loss (mL): 20 Findings: term female in the KATERINA presentation with nuchal X2 and body cord Pre-Delivery Course: The patient was admitted in active labor. AROM was performed at 8 cm dilation. The patient quickly had complete cervical dilation. Delivery: The patient had complete cervical dilation and began to push. The head delivered in the KATERINA position over an intact perineum under no anesthesia. The nose and mouth were bulb suctioned. The shoulders and body delivered atraumatically. The baby was placed onto the mother's abdomen. The cord was clamped and cut. The placenta delivered spontaneously. It was inspected and found to be intact. Inspection of the perineum revealed no lacerations and no repair was required. Estimated blood loss 20 mL. Apgars on baby were 8 at 1 minute and 9 at 5 minutes. Weight of baby is 6 pounds 10 ounces. Mother and baby were stable post delivery. History History History 2 Term 1 0 Miscarriages/Ectopic 0 Living Children 1 Coding Level of Care Code Acute Code for Chg Fwd Diagnoses
[2022-10-31 08:26] LABS: Amphetamines Screen Urine Negative (Negative); Barbiturates Screen Urine Negative (Negative); Benzodiazepines Screen Urine Negative (Negative); Cocaine Screen Urine Negative (Negative); Opiate Screen Urine Negative (Negative); PCP Screen Urine Negative (Negative); THC Screen Urine Positive (Negative)
[2022-10-31] MEDS: lanolin oint 7 gm 1 APPLIC TOPICAL (08:32)
[2022-10-31] MEDS: benzocaine-menthol 78 gm Canister 1 SPRAY TOPICAL (08:32)
[2022-10-31] MEDS: ibuprofen 800 mg tablet PO ×3 (08:33→22:14)
[2022-10-31] MEDS: docusate sodium 100 mg Capsule PO (08:33)
[2022-10-31] MEDS: prenatal vitamin Capsule 1 CAP PO (08:33)
[2022-10-31 20:34] LABS: Hematocrit 33.5 % (37.0-47.0); Hemoglobin 10.8 g/dL (11.5-15.3); Mean Corpuscular HGB Conc 32.2 g/dL (30.0-36.0); Mean Corpuscular Hemoglobin 26.5 pg (28.0-34.0); Mean Corpuscular Volume 82.1 fl (81-99); Mean Platelet Volume 9.5 fL (7.4-10.4); Platelet Count 190 10^3/cmm (130-400); Red Blood Count 4.08 10^6/uL (4.1-5.3); Red Cell Distribution Width 12.5 % (12.1-15.1); White Blood Count 12.4 10^3/uL (4.0-10.0)
[2022-11-01 00:34] VITALS: BP 134/80; PULSE 82; RESP 16; TEMP 36.7; O2SAT 99
[2022-11-01 02:09] VITALS: BP 116/72; PULSE 74; RESP 15; TEMP 36.6; O2SAT 100
[2022-11-01 04:00] VITALS: BP 111/67; PULSE 90; RESP 15; TEMP 36.7; O2SAT 99
[2022-11-01 08:50] VITALS: BP 130/76; PULSE 91
[2022-11-01] MEDS: ibuprofen 800 mg tablet PO (10:22)
[2022-11-01] MEDS: docusate sodium 100 mg Capsule PO (10:22)
[2022-11-01] MEDS: prenatal vitamin Capsule 1 CAP PO (10:22)
--- NOTE | 2022-11-01 12:50 | P.DS_ITS ---
Discharge Providers Date of Admission: 10/31/22 05:33 Date of Discharge: November 01, 2022 Attending Provider at Admission: Luz Schmidt MD Attending Provider at Discharge: Luz Schmidt MD Primary Care Provider: Juan Rodriguez MD Diagnoses at Discharge Discharge Diagnosis (1) Supervision of other high-risk : Status: Acute (2) Hypothyroidism: Status: Inactive Permanent problem details: managed by pcp-- has not been on medication since 2019. Reason for Visit Reason for Visit: Contractions Hospital Course Hospital Course The patient was admitted in active labor. She had spontaneous delivery of a term female . She did well and was ready for discharge on day #1 Physical Exam Narrative: The patient is doing well today. No concerns. Const: COMMON NORMALS: no acute distress, average body habitus, patient oriented x3, no limitations, healthy appearing, alert and well nourished GENERAL APPEARANCE: cooperative, comfortable, well kempt and well developed ORIENTATION/CONSCIOUSNESS: Yes awake, Yes oriented to person, Yes oriented to place and Yes oriented to time Resp: COMMON NORMALS: clear to auscultation bilaterally AUSCULTATION: clear to auscultation bilaterally GI: COMMON NORMALS: Soft to palpation and non-tender PALPATION: Yes Soft to palpation Extremity: COMMON NORMALS: no calf tenderness Neuro: COMMON NORMALS: patient oriented x3 SENSORIUM/ORIENTATION: Yes alert, Yes oriented to person, Yes oriented to place and Yes oriented to time Psych: COMMON NORMALS: mental status grossly normal, Normal thought process present, cooperative, normal affect and speech normal APPEARANCE: Yes well kempt SPEECH: Yes normal speech THOUGHT PROCESS: Normal thought process present Discharge Data Studies Completed and Pending Pending at discharge Category Date Time Status TSH [Thyroid Stimulating Hormone] Routine Lab 10/31/22 06:45 Ordered Urine Culture Stat Lab 10/31/22 04:20 Results Laboratory Results WBC 12.4 10^3/uL (4.0-10.0) H 10/31/22 20:24 RBC 4.08 10^6/uL (4.1-5.3) L 10/31/22 20:24 Hgb 10.8 g/dL (11.5-15.3) L 10/31/22 20:24 Hct 33.5 % (37.0-47.0) L 10/31/22 20:24 MCV 82.1 fl (81-99) 10/31/22 20:24 MCH 26.5 pg (28.0-34.0) L 10/31/22 20:24 MCHC 32.2 g/dL (30.0-36.0) 10/31/22 20:24 RDW 12.5 % (12.1-15.1) 10/31/22 20:24 Plt Count 190 10^3/cmm (130-400) 10/31/22 20:24 MPV 9.5 fL (7.4-10.4) 10/31/22 20:24 Neut % (Auto) 76.9 % 10/31/22 05:18 Lymph % (Auto) 16.2 % 10/31/22 05:18 [place] % (Auto) 6.1 % 10/31/22 05:18 Eos % (Auto) 0.1 % 10/31/22 05:18 Baso % (Auto) 0.3 % 10/31/22 05:18 Neut # (Auto) 11.16 10^3/uL (1.8-7.7) H 10/31/22 05:18 Lymph # (Auto) 2.4 10^3/uL (0.8-4.8) 10/31/22 05:18 [place] # (Auto) 0.9 10^3/uL (0.2-0.9) 10/31/22 05:18 Eos # (Auto) 0.0 10^3/uL (0.0-0.8) 10/31/22 05:18 Baso # (Auto) 0.0 10^3/uL (0.0-0.1) 10/31/22 05:18 Nucleated RBC % (auto) 0 % 10/31/22 05:18 Nucleated RBCs # 0.0 /100WBC 10/31/22 05:18 Urine Color Yellow (Yellow) 10/31/22 04:20 Urine Appearance Sl hazy (CLEAR) A 10/31/22 04:20 Urine pH 7 (5-7) 10/31/22 04:20 Ur Specific [place] 1.005 (1.005-1.030) 10/31/22 04:20 Urine Protein Neg (Negative) 10/31/22 04:20 Urine Glucose (UA) Norm (Normal) 10/31/22 04:20 Urine Ketones 2+ (Negative) H 10/31/22 04:20 Urine Blood 2+ (Negative) H 10/31/22 04:20 Urine Nitrate Negative (Negative) 10/31/22 04:20 Urine Bilirubin Neg (Negative) 10/31/22 04:20 Urine Urobilinogen Norm mg/dL (Negative) 10/31/22 04:20 Ur Leukocyte Esterase 2+ (Negative) H 10/31/22 04:20 Urine RBC 0-4 /hpf (0-2) H 10/31/22 04:20 Urine WBC 55-80 /hpf (0-5) H 10/31/22 04:20 Ur Squamous Epith Cells 5-10 /hpf (0-5) H 10/31/22 04:20 Amorphous Sediment Not Reportable 10/31/22 04:20 Urine Bacteria Trace /hpf (NONE) 10/31/22 04:20 Urine Opiates Screen Negative ng/mL (Negative) 10/31/22 04:20 Ur Barbiturates Screen Negative ng/mL (Negative) 10/31/22 04:20 Ur Phencyclidine Scrn Negative ng/mL (Negative) 10/31/22 04:20 Ur Amphetamines Screen Negative ng/mL (Negative) 10/31/22 04:20 U Benzodiazepines Scrn Negative ng/mL (Negative) 10/31/22 04:20 Urine Cocaine Screen Negative ng/mL (Negative) 10/31/22 04:20 U Marijuana (THC) Screen Positive ng/mL (Negative) H 10/31/22 04:20 Vitals Last Vital Signs Temp 98.1 F 11/01/22 04:00 Pulse 90 11/01/22 04:00 Resp 15 11/01/22 04:00 BP 111/67 11/01/22 04:00 Pulse Ox 99 11/01/22 04:00 O2 Del Method Room Air 11/01/22 04:00 Discharge Plan Discharge Condition: Stable Prescriptions: Continued promethazine 12.5 mg tablet 12.5 mg PO Q6H PRN (Reason: nausea and vomiting) Qty: 30 4RF ondansetron HCl 4 mg tablet 4 mg PO Q8H famotidine [Pepcid] 40 mg tablet 40 mg PO DAILY Qty: 30 6RF prochlorperazine maleate 10 mg tablet 10 mg PO Q6H PRN (Reason: nausea and vomiting) Qty: 90 6RF Discharge Orders: Discharge Order (Routine); Ordered 11/01/22 Ordered By: Luz Schmidt Patient Instructions: Opioid Safety Discharge Attestations Time Spent in Discharge Care*: less than 30 min Quality Metrics Clinical Quality Measures [ No reported AMI, CVA or VTE this stay] Coding Level of Care Code Acute Code for Chg Fwd Diagnoses Supervision of other high-risk O09.899 Hypothyroidism E03.9
[2022-11-01 16:12] VITALS: BP 118/80; PULSE 90; TEMP 36.7
[2022-11-01 19:05] VITALS: BP 108/76; PULSE 92; TEMP 36.7
== END 2022-11-01 19:35 | disposition home or self-care (01) | DRG 807 ==
LOC: OPOB 05:34 → OBGYN 05:34
PROVIDERS: Admitting Provider Obstetrics & Gynecology; PCP Family Medicine; Visit Provider Obstetrics & Gynecology
DX: O99.284 Endocrine, nutritional and metabolic diseases complicating childbirth (principal); Z37.0 Single live birth; E03.9 Hypothyroidism, unspecified; O99.334 Smoking (tobacco) complicating childbirth; F17.290 Nicotine dependence, other tobacco product, uncomplicated; Z3A.38 38 weeks gestation of pregnancy; O75.89 Other specified complications of labor and delivery; K21.9 Gastro-esophageal reflux disease without esophagitis
CPT/HCPCS: 36415; 59025; 59409; 80306; 81001; 85025; 85027; 87086; 99211; J2590; J7121

== ENCOUNTER 2023-02-14 17:07 | Emergency (ER) | payer BC, MEDICAID, SELFPAY ==
[2023-02-14 17:17] VITALS: BP 132/95; PULSE 97; RESP 15; TEMP 36.8; O2SAT 99
--- NOTE | 2023-02-14 17:58 | ED_ITS ---
HPI - General Adult General: Chief complaint: General Medical Stated complaint: breast pain, fever, tired, low appetite, body ache Time Seen by Provider: 02/14/23 17:45 History of Present Illness: Patient is a 22-year-old female who presents to the emergency department for evaluation of right breast pain and erythema. Patient reports that her symptoms started yesterday and has continue to progress since onset. Patient reports that she had a fever last night of approximately 102.0 ?F. Patient has been taking Tylenol and Motrin as needed for fever and comfort. Temperature in triage is 98.3 ?F. She currently rates her pain as a 7 out of 10 in severity that she describes as a burning-like sensation. She denies purulent drainage from the right nipple. She denies cough, congestion, sore throat, otalgia, otorrhea, chest pain, shortness of breath, palpitations, lightheadedness, dizziness, abdominal pain, diarrhea, dysuria, hematuria, nausea, vomiting, or any other associated symptoms. No other complaints at this time. Associated symptoms: Deny chest pain, dyspnea, headache(s), nausea, rash, palpitations or vomiting Review of Systems General: Reports: 10 or more systems reviewed and unremarkable except in HPI and below Const: Reports: fever(s) and chills Eyes: Denies: change in vision, blurry vision or eye discharge ENMT: Denies: throat pain, odynophagia, hoarseness, ear or mastoid pain or ear discharge Card: Denies: chest pain, palpitations or irregular heart rhythm Resp: Denies: dyspnea, productive cough, non-productive cough or wheezing GI: Denies: abdominal pain, nausea or vomiting : Denies: dysuria, urinary urgency or hematuria Musc: Reports: other (Admits to right breast pain and erythema.) Skin/Breast: Denies: rash Neuro: Denies: headache(s) or weakness in extremities PFS ED PFSH: Medical History No pertinent past medical history neghx: htn,dm,dvt/pe Surgical History No history of previous surgery Family History Grandmother Breast cancer Mother Hyperlipidemia Hypertension Stroke Family history of thyroid problem Family history of premature coronary artery disease Grandfather Family history of thyroid problem Maternal grandfather Family/Other Family history of thyroid problem Maternal uncle Social History Substance/Drug Use: current Substance/Drug use frequency: few times a month Physical Exam Const: COMMON NORMALS: no acute distress, average body habitus, patient oriented x3 and alert HENMT: COMMON NORMALS: normocephalic, atraumatic, moist oral mucous membranes and oropharynx normal HEAD & SCALP: normocephalic and atraumatic Eye: COMMON NORMALS: Equal, round and reactive pupils present, EOMs intact bi laterally and conjunctivae normal CONJUNCTIVA: Yes conjunctivae normal PUPIL: Yes Equal, round and reactive pupils present Neck/C-Spine: COMMON NORMALS: full ROM Chest: OTHER: Erythema is noted around the right areola. No active drainage from the right nipple noted. The area is mildly warm and tender to palpation. No red streaking appreciated. No masses or underlying abscess appreciated to palpation. Airport Control Operator present Resp: COMMON NORMALS: normal respiratory effort, No retractions, No use of accessory muscles and clear to auscultation bilaterally AUSCULTATION: clear to auscultation bilaterally Cardio: COMMON NORMALS: regular rate, No gallops present (Cardio), No clicks present (Cardio), No murmurs present (Cardio) and No rub (Cardio) RATE: regular rate Neuro: COMMON NORMALS: patient oriented x3 SENSORIUM/ORIENTATION: Yes alert Course Vital Signs: Vital signs: Vital Signs Temperature 98.3 F 02/14/23 17:17 Pulse Rate 97 02/14/23 17:17 Respiratory Rate 15 02/14/23 17:17 Blood Pressure 132/95 02/14/23 17:17 Pulse Oximetry 99 02/14/23 17:17 Oxygen Delivery Me thod Room Air 02/14/23 17:17 MDM - General Adult Medical Decision Making Patient is a 22-year-old female who presents to the emergency department for evaluation of right breast pain and erythema. On physical examination patient is nontoxic and in no acute distress. Vital signs remained stable throughout the ED course. Patient is afebrile. No evidence of sepsis at this time. Mild erythema is noted around the right areola. I will treat for possible mastitis and have the patient follow-up with her WEIGHMASTER LEAD. I offered further laboratory work in the emergency department, however, the patient denied all further laboratory work at this time and is requesting antibiotics at discharge. First dose of Keflex given in the emergency department. Call your WEIGHMASTER LEAD tomorrow to schedule appointment for further management/evaluation. See handout over generalized instructions. A prescription of Keflex was sent to her pharmacy be picked up. Take medications as prescribed. Tylenol as needed for pain. Continue to breast-feed on the right breast. Call your primary care provider tomorrow with an update of your symptoms. Return to the emergency department for any rapid or worsening symptoms to include but not limited to fevers, increased redness, nausea, vomiting, lightheadedness, dizziness, or as needed. I discussed patient's history, exam, and all findings with Dr. Quintero in the emergency department who agrees my assessment and plan. He did not feel the patient required admission or further evaluation at this time. Patient stated setting of all discharge instructions and was agreeable to plan of care Differential diagnosis includes but is not limited to mastitis, clogged mammary duct, sepsis, cellulitis, abscess No radiology studies performed this visit Discharge Plan Discharge Patient Disposition: Home Clinical Impression: Mastitis Condition: Stable Prescriptions: New cephalexin 500 mg capsule 500 mg PO QID 10 Days Qty: 40 0RF Discharge Orders: Discharge ED (Routine); Ordered 02/14/23 Ordered By: Jasper Piper Referrals: Juan Rodriguez MD [Primary Care Provider] - Patient Instructions: Mastitis Activity Restrictions/Additional Instructions: Call your WEIGHMASTER LEAD tomorrow to schedule appointment for further management/evaluation. See handout over generalized instructions. A prescription of Keflex was sent to her pharmacy be picked up. Take medications as prescribed. Tylenol as needed for pain. Continue to breast-feed on the right breast. Call your primary care provider tomorrow with an update of your symptoms. Return to the emergency department for any rapid or worsening symptoms to include but not limited to fevers, increased redness, nausea, vomiting, lightheadedness, dizziness, or as needed. Coding Level of Care Code ED Pipeline Dispatcher for Ivett Martinez
[2023-02-14] MEDS: cephALEXin 500 mg Capsule PO (18:29)
== END 2023-02-14 18:41 | disposition home or self-care (01) ==
PROVIDERS: Emergency Provider Physician Assistant; PCP Family Medicine
DX: O91.23 Nonpurulent mastitis associated with lactation (principal)
CPT/HCPCS: 99283

== ENCOUNTER 2023-06-28 18:44 | Emergency (ER) | payer SELFPAY ==
--- NOTE | 2023-06-28 18:46 | XRR_ITS ---
PROCEDURE INFORMATION: Exam: XR Right Hand Exam date and time: 06/28/2023 7:05 PM Age: 22 years old Clinical indication: Injury or trauma; Other: Punched wall; Other: Right hand pain and bruising TECHNIQUE: Imaging protocol: Radiologic exam of the right hand. Views: 3 or more views. COMPARISON: No relevant prior studies available. FINDINGS: Bones/joints: There is an acute transverse, nondisplaced fracture involving the distal end of the 5th metacarpal bone. No other bony abnormality noted. Soft tissues: Normal. XR/XR hand RT min 3V* [id number] IMPRESSION: Acute fracture of the 5th metacarpal
[2023-06-28 18:53] VITALS: BP 133/84; PULSE 85; RESP 16; TEMP 36.7; O2SAT 99
--- NOTE | 2023-06-28 19:00 | ED_ITS ---
HPI - Extremity Problem General: Chief complaint: Extremity Injury, Upper Stated complaint: right hand injury Time Seen by Provider: 06/28/23 18:52 Source: patient Mode of arrival: ambulatory Limitations: no limitations History of Present Illness: 22-year-old female states she punched a wall on Wednesday states she is at pain over the fourth and fifth metacarpals since then. States pain sharp in nature is worse with movement she rates her pain a 4 out of 10 currently. Associated symptoms: Deny chest pain, fever(s) or rash Review of Systems Const: Denies: fever(s), chills, body aches or change in appetite ENMT: Denies: throat pain or dental pain Card: Denies: chest pain Resp: Denies: dyspnea GI: Denies: abdominal pain, nausea, vomiting or diarrhea Musc: Reports: extremity pain; Denies: neck pain or back pain Skin/Breast: Denies: rash Neuro: Denies: headache(s) PFSH ED PFSH: Medical History No pertinent past medical history neghx: htn,dm,dvt/pe Surgical History No history of previous surgery Family History Grandmother Breast cancer Mother Hyperlipidemia Hypertension Stroke Family history of thyroid problem Family history of premature coronary artery disease Grandfather Family history of thyroid problem Maternal grandfather Family/Other Family history of thyroid problem Maternal uncle Social History Substance/Drug Use: current Substance/Drug use frequency: few times a month Physical Exam Const: COMMON NORMALS: no acute distress, patient oriented x3 and healthy appearing HENMT: COMMON NORMALS: normocephalic and atraumatic HEAD & SCALP: normocephalic and atraumatic Neck/C-Spine: COMMON NORMALS: full ROM and supple Chest: COMMONS NORMALS: normal inspection of the chest Resp: COMMON NORMALS: normal respiratory effort Extremity: COMMON NORMALS: full ROM NARRATIVE EXTREMITY EXAM: Tenderness of bruising noted to right hand no obvious deformity Neuro: COMMON NORMALS: patient oriented x3, moves all extremities and no focal motor deficits Psych: COMMON NORMALS: mental status grossly normal, Normal thought process present and cooperative THOUGHT PROCESS: Normal thought process present Skin: COMMON NORMALS: no rashes or lesions noted and no wounds GENERAL SKIN EXAM: no rashes or lesions noted Course Vital Signs: Vital signs: Vital Signs Temperature 98.1 F 06/28/23 18:53 Pulse Rate 85 06/28/23 18:53 Respiratory Rate 16 06/28/23 18:53 Blood Pressure 133/84 06/28/23 18:53 Pulse Oximetry 99 06/28/23 18:53 Oxygen Delivery Me thod Room Air 06/28/23 18:53 MDM - Extremity (Nontraumatic) Medical Decision Making Patient presents with a hand fracture will place in ulnar gutter splint she is to follow-up with orthopedics return if worsening. Medical Records I reviewed the patient's medical records. XR interpretation done by ED provider, pending radiology final review ED provider radiology interpretation(s): xr hand: fifth metacarpal fx Discharge Plan Discharge Patient Disposition: Home Clinical Impression: Fracture of hand Qualifiers: Encounter type: initial encounter Fracture type: closed Laterality: right Qualified Code(s): S62.91XA - Unspecified fracture of right wrist and hand, initial encounter for closed fracture Condition: Stable Prescriptions: New Naprosyn 500 mg tablet 500 mg PO BID PRN (Reason: pain) Qty: 20 0RF Discharge Orders: Discharge ED (Routine); Ordered 06/28/23 Ordered By: Krystyna Robins Referrals: Nellie Perry MD [Physician] - 1-3 days Juan Rodriguez MD [Primary Care Provider] - Discharge Diet: Advance as tolerated Discharge Activity: Resume usual activity Patient Instructions: Boxer Fracture (ED) Coding Level of Care Code ED Commercial Kitchen Service Technician for Ivett Martinez
[2023-06-28] MEDS: naproxen 500 mg Tablet PO (19:32)
[2023-06-28 19:43] VITALS: BP 133/84; PULSE 85; RESP 16; TEMP 36.7; O2SAT 99
--- NOTE | 2023-06-29 07:30 | DCPLANNER ---
Message sent to Ortho for a follow up appointment for a boxer fracture
== END 2023-06-28 19:44 | disposition home or self-care (01) ==
PROVIDERS: Emergency Provider Emergency Medicine; PCP Family Medicine
DX: S62.356A Nondisplaced fracture of shaft of fifth metacarpal bone, right hand, initial encounter for closed fracture (principal); W22.09XA Striking against other stationary object, initial encounter
CPT/HCPCS: 73130; 99283

== ENCOUNTER 2023-07-02 06:00 | Outpatient (CLI) | payer SELFPAY | END 2023-07-02 23:59 | disposition home or self-care (01) | LOC: SOT 07-05 08:33 | PROVIDERS: PCP Family Medicine; Visit Provider Specialist | DX: Z46.89 Encounter for fitting and adjustment of other specified devices (principal); S62.91XD Unspecified fracture of right hand, subsequent encounter for fracture with routine healing; X58.XXXD Exposure to other specified factors, subsequent encounter | CPT/HCPCS: L3918 ==

== ENCOUNTER → 2023-07-02 10:05 | Outpatient (BNVA) | payer SELFPAY | PROVIDERS: PCP Family Medicine; Visit Provider Specialist | DX: S62.336A Displaced fracture of neck of fifth metacarpal bone, right hand, initial encounter for closed fracture; W22.09XA Striking against other stationary object, initial encounter | CPT/HCPCS: 73130 ==

== ENCOUNTER 2023-07-19 06:00 | Outpatient (CLI) | payer SELFPAY | END 2023-07-19 06:01 | LOC: SOT 07-20 12:17 | PROVIDERS: Visit Provider Specialist | DX: Z46.89 Encounter for fitting and adjustment of other specified devices (principal); S62.306D Unspecified fracture of fifth metacarpal bone, right hand, subsequent encounter for fracture with routine healing; X58.XXXD Exposure to other specified factors, subsequent encounter | CPT/HCPCS: L3982 ==

== ENCOUNTER → 2023-07-19 10:26 | Outpatient (BNVA) | payer SELFPAY | PROVIDERS: PCP Family Medicine; Visit Provider Specialist | DX: S62.336A Displaced fracture of neck of fifth metacarpal bone, right hand, initial encounter for closed fracture (principal); W22.09XA Striking against other stationary object, initial encounter | CPT/HCPCS: 73130 ==

== ENCOUNTER → 2023-08-25 14:14 | Outpatient (BNVA) | payer BC, SELFPAY | PROVIDERS: Visit Provider Specialist | DX: S62.336A Displaced fracture of neck of fifth metacarpal bone, right hand, initial encounter for closed fracture (principal); T14.8XXA Other injury of unspecified body region, initial encounter; X58.XXXA Exposure to other specified factors, initial encounter | CPT/HCPCS: 73130 ==

== ENCOUNTER 2023-09-07 14:55 | Emergency (ER) | payer SELFPAY ==
[2023-09-07 15:02] VITALS: BP 123/87; PULSE 116; RESP 18; TEMP 36.7; O2SAT 98; BMI 22.3
--- NOTE | 2023-09-07 15:53 | ED_ITS ---
HPI - Extremity Injury (Lower) General: Chief Complaint: Extremity Injury, Lower Stated Complaint: Right Foot Pain Time Seen by Provider: 09/07/23 15:50 Source: patient Mode of arrival: wheelchair Limitations: no limitations History of Present Illness: Patient is a 23-year-old female presents to ED today for evaluation of a right foot injury that she sustained just prior to arrival after she accidentally ran the right foot into a nightstand. She has no other injuries or complaints at this time. MD complaint: foot injury Onset (ago): hour(s) Injury: Right: foot Type of Injury: blunt Place: home Severity: moderate Relieving factors: immobilization Exacerbating factors: weight bearing, movement and palpation Context: direct blow Associated symptoms: Reports inability to bear weight Other symptoms: none Review of Systems Musc: Reports: extremity pain (R foot) and extremity swelling (R foot) Neuro: Reports: difficulty walking (secondary to R foot pain); Denies: numbness in extremities or sensory changes PFSH ED PFSH: Medical History No pertinent past medical history neghx: htn,dm,dvt/pe Surgical History No history of previous surgery Family History Grandmother Breast cancer Mother Hyperlipidemia Hypertension Stroke Family history of thyroid problem Family history of premature coronary artery disease Grandfather Family history of thyroid problem Maternal grandfather Family/Other Family history of thyroid problem Maternal uncle Social History Smoking and tobacco/nicotine status: current some day tobacco/nicotine user e- cigarettes E-Cigarette Details: vaporizer device and with nicotine Second hand smoke exposure: No Alcohol intake: never Substance/Drug Use: current Substance/Drug use frequency: few times a month Physical Exam Const: COMMON NORMALS: no acute distress, no limitations, healthy appearing, alert and well nourished Extremity: COMMON NORMALS: capillary refill normal GENERAL: Yes normal exam except as noted RIGHT LOWER EXTREMITY: Yes foot & digits (TTP distal dorsal medial R foot; ecchymosis/edema noted) Right foot and digits: Yes neurovascular exam (normal) Neuro: COMMON NORMALS: moves all extremities, no focal motor deficits and no sensory deficits noted SENSORIUM/ORIENTATION: Yes alert GAIT: Yes Unable to assess gait Course Vital Signs: Vital signs: Vital Signs Temperature 98.0 F 09/07/23 15:02 Pulse Rate 116 H 09/07/23 15:02 Respiratory Rate 18 09/07/23 15:02 Blood Pressure 123/87 09/07/23 15:02 Pulse Oximetry 98 09/07/23 15:02 Oxygen Delivery Me thod Room Air 09/07/23 15:02 MDM - Extremity Injury (Lower) Medical Decision Making On personal interpretation of patient's x-ray she appears to have a small avulsion cecelia to the distal aspect of her first metatarsal on the medial aspect. Official radiology report still pending. This correlates directly where patient has maximum tenderness. Patient will be placed in a [place] surgical shoe and given crutches for WBAT. She will follow up with podiatry. Medical Records I reviewed the patient's medical records. XR interpretation done by ED provider, pending radiology final review Discharge Plan Discharge Patient Disposition: Home Clinical Impression: Fracture of first metatarsal bone Qualifiers: Encounter type: initial encounter Fracture type: closed Fracture alignment: nondisplaced Laterality: right Qualified Code(s): S92.314A - Nondisplaced fracture of first metatarsal bone, right foot, initial encounter for closed fracture Condition: Stable Prescriptions: No Action (DME) [place] Splint, right fifth digit See Rx Instructions .Route .MEDSUPPLY Qty: 1 0RF Rx Instructions: As directed (DME) [place] Splint, right fifth digit See Rx Instructions .Route .MEDSUPPLY Qty: 1 0RF Rx Instructions: As directed (DME) fast form splint, right See Rx Instructions .Route .MEDSUPPLY Qty: 1 0RF Rx Instructions: As directed Naprosyn 500 mg tablet 500 mg PO BID PRN (Reason: pain) Qty: 20 0RF Discharge Orders: Discharge ED (Routine); Ordered 09/07/23 Ordered By: Florinda López Activity Restrictions/Additional Instructions: As we discussed, on your x-ray I have a suspicion for a very small avulsion fracture involving your first metatarsal. We will have you follow-up with orthopedics for this. Use your crutches as needed for weightbearing. You need to stay in your splint at all times until told otherwise by orthopedics. Coding Level of Care Code ED Engagement Manager for Ivett Martinez
--- NOTE | 2023-09-07 15:57 | XRR_ITS ---
PROCEDURE INFORMATION: Exam: XR Right Foot Exam date and time: 09/07/2023 4:00 PM Age: 23 years old Clinical indication: Injury or trauma; Other: Not specified; Blunt trauma; Foot and toes; Right TECHNIQUE: Imaging protocol: Radiologic exam of the right foot. Views: 3 or more views. COMPARISON: CR (LOW EXM, ) 07/19/2022 5:35 PM FINDINGS: Bones/joints: No evidence of acute fracture or subluxation. Tarsometatarsal alignment is maintained. Soft tissues: No gross soft tissue abnormality. XR/XR foot RT min 3V* 19500 IMPRESSION: 1. No evidence of acute fracture or subluxation.
--- NOTE | 2023-09-07 18:51 | DCPLANNER ---
Message sent to podiatry for follow up
== END 2023-09-07 17:19 | disposition home or self-care (01) ==
PROVIDERS: Emergency Provider Physician Assistant
DX: S92.314A Nondisplaced fracture of first metatarsal bone, right foot, initial encounter for closed fracture (principal); F17.290 Nicotine dependence, other tobacco product, uncomplicated; W22.03XA Walked into furniture, initial encounter
CPT/HCPCS: 73630; 99283; E0114

== ENCOUNTER 2023-09-11 15:17 | Emergency (ER) | payer SELFPAY ==
[2023-09-11 15:22] VITALS: BP 122/77; PULSE 82; RESP 16; TEMP 36.9; O2SAT 97; BMI 22.3
--- NOTE | 2023-09-11 17:45 | ED_ITS ---
HPI - Skin/Abscess/Foreign Bdy General: Chief complaint: Skin/Abscess/Foreign Body Stated complaint: bite Time Seen by Provider: 09/11/23 17:32 Source: patient Mode of arrival: ambulatory History of Present Illness: 23-year-old female presents emergency ro om complaining of red streaking on her left forearm began earlier today. She states it started around the area where she was bitten by a bug yesterday. She had a little loose stool as well. No vomiting no diarrhea no fever at this time. MD complaint: insect bite/sting Onset (ago): hour(s) Location: LUE Relieving factors: none Exacerbating factors: none Associated symptoms: Reports itching; Deny arthralgias, fever(s), myalgias, nausea or vomiting Review of Systems Const: Denies: fever(s) Card: Denies: chest pain Resp: Denies: dyspnea GI: Denies: nausea or vomiting : Denies: dysuria, urinary frequency or urinary urgency Musc: Denies: neck pain or back pain Skin/Breast: Denies: rash PFSH ED PFSH: Medical History No pertinent past medical history neghx: htn,dm,dvt/pe Surgical History No history of previous surgery Family History Grandmother Breast cancer Mother Hyperlipidemia Hypertension Stroke Family history of thyroid problem Family history of premature coronary artery disease Grandfather Family history of thyroid problem Maternal grandfather Family/Other Family history of thyroid problem Maternal uncle Social History Smoking and tobacco/nicotine status: current some day tobacco/nicotine user e- cigarettes E-Cigarette Details: vaporizer device and with nicotine Second hand smoke exposure: No Alcohol intake: never Substance/Drug Use: current Substance/Drug use frequency: few times a month Physical Exam Const: GENERAL APPEARANCE: cooperative and comfortable ORIENTATION/CONSCIOUSNESS: Yes awake, Yes oriented to person, Yes oriented to place and Yes oriented to time HENMT: COMMON NORMALS: normocephalic, atraumatic and hearing grossly normal bilaterally HEAD & SCALP: normocephalic and atraumatic Resp: COMMON NORMALS: normal respiratory effort, No retractions, No use of accessory muscles and clear to auscultation bilaterally AUSCULTATION: clear to auscultation bilaterally Cardio: COMMON NORMALS: regular rate, regular rhythm and No murmurs present (Cardio) RATE: regular rate RHYTHM: regular rhythm Extremity: COMMON NORMALS: normal to inspection, capillary refill normal, no clubbing, cyanosis or edema, no calf tenderness and no pedal edema OTHER: Mildly reddened area on the left forearm extending across the antecubital fossa proximally. No axillary lymphadenopathy Neuro: SENSORIUM/ORIENTATION: Yes oriented to person, Yes oriented to place and Yes oriented to time Skin: COMMON NORMALS: no rashes or lesions noted GENERAL SKIN EXAM: no rashes or lesions noted Course Vital Signs: Vital signs: Vital Signs Temperature 98.4 F 09/11/23 15:22 Pulse Rate 82 09/11/23 15:22 Respiratory Rate 16 09/11/23 15:22 Blood Pressure 122/77 09/11/23 15:22 Pulse Oximetry 97 09/11/23 15:22 Oxygen Delivery Me thod Room Air 09/11/23 15:22 MDM - Skin/Abscess/Foreign Bdy Medicial Decision Making Treat for cellulitis. 1 p.o. twice daily cephalexin times for 1 week. Moist heat as needed if not improving or worsens recheck No radiology studies performed this visit Discharge Plan Discharge Patient Disposition: Home Clinical Impression: Cellulitis of forearm, left Condition: Stable Prescriptions: New cephalexin 500 mg capsule 500 mg PO TID 7 Days Qty: 21 0RF No Action (DME) [place] Splint, right fifth digit See Rx Instructions .Route .MEDSUPPLY Qty: 1 0RF Rx Instructions: As directed (DME) [place] Splint, right fifth digit See Rx Instructions .Route .MEDSUPPLY Qty: 1 0RF Rx Instructions: As directed (DME) fast form splint, right See Rx Instructions .Route .MEDSUPPLY Qty: 1 0RF Rx Instructions: As directed Naprosyn 500 mg tablet 500 mg PO BID PRN (Reason: pain) Qty: 20 0RF Discharge Orders: Discharge ED (Routine); Ordered 09/11/23 Ordered By: Angelo Choudhury Discharge Diet: Usual diet Discharge Activity: Resume usual activity Patient Instructions: Opioid Safety, Pain Management Activity Restrictions/Additional Instructions: Thank you for choosing [facility] for your healthcare needs today. It is very important that you follow up as instructed or that you return to the Emergency Department should you have concerns or if your condition changes or worsens in any way. You were seen today for redness and inflammation on your left forearm. You were given antibiotics for cellulitis. Apply moist heat to the area as needed for comfort, 20 minutes at a time every 2 hours as tolerated. Follow-up with your primary care doctor if not improving Coding Level of Care Code ED Printing Specialist for Ivett Martinez
[2023-09-11 17:52] VITALS: BP 134/83; PULSE 73; O2SAT 96
[2023-09-11] MEDS: cephALEXin 500 mg Capsule 1000 MG PO (19:01)
[2023-09-11 19:05] VITALS: BP 137/84; PULSE 79; RESP 16; O2SAT 98
--- NOTE | 2023-09-11 19:07 | PC.NURSE ---
Pt was sent home with 500mg tab of Cephalexin per Dr Messina orders due to her infection continuing up her arm.
[2023-09-11 19:12] LABS: Basophils # 0.1 10^3/uL (0.0-0.1); Basophils % 0.6 %; Eosinophils # 0.3 10^3/uL (0.0-0.8); Eosinophils % 2.7 %; Hematocrit 40.2 % (36-47); Lymphocytes # 3.2 10^3/uL (0.8-4.8); Lymphocytes % 26.5 %; Mean Corpuscular HGB Conc 31.6 g/dL (30-55); Mean Corpuscular Hemoglobin 26.2 pg (27-33); Mean Corpuscular Volume 82.9 fl (85-98); Mean Platelet Volume 9.1 fL (7.4-10.4); Monocytes # 0.6 10^3/uL (0.2-0.9); Monocytes % 5.4 %; Neutrophils # 7.72 10^3/uL (1.8-7.7); Neutrophils % 64.5 %; Nucleated Red Blood Cells % 0 %; Platelet Count 258 10^3/cmm (157-399); Red Blood Count 4.85 10^6/uL (3.85-5.65); Red Cell Distribution Width 13.5 % (12.1-15.1); White Blood Count 11.96 10^3/uL (3.29-11.43)
[2023-09-11 19:32] LABS: Anion Gap 15.6 (5-19); Blood Urea Nitrogen 9 mg/dL (6-20); Calcium 8.6 mg/dL (8.5-10.5); Carbon Dioxide 25 mmol/L (22-29); Chloride 104 mmol/L (98-107); Creatinine Clr Calc Pharmacy 199.2348; Glomerular Filtration Rate 154.3 mL/min (90-130); Glucose 98 mg/dL (65-115); Osmolality Calculated 291 mOsm/kg (285-295); Potassium 3.6 mmol/L (3.5-5.1); Sodium 141 mmol/L (136-145)
== END 2023-09-11 19:03 | disposition home or self-care (01) ==
PROVIDERS: Emergency Provider Family Medicine
DX: L03.114 Cellulitis of left upper limb (principal); F17.290 Nicotine dependence, other tobacco product, uncomplicated
CPT/HCPCS: 36415; 80048; 85025; 87040; 99283

== ENCOUNTER 2023-09-12 19:57 | Emergency (ER) | payer SELFPAY ==
[2023-09-12 20:03] VITALS: BP 128/80; PULSE 109; RESP 14; TEMP 36.6; O2SAT 97
[2023-09-12 20:07] VITALS: PULSE 89; RESP 16; O2SAT 97
--- NOTE | 2023-09-12 20:11 | W.ED.SKABFB ---
Documented by User: GANESH Young 09/12/23 21:32 HPI - Skin/Abscess/Foreign Bdy General: Chief complaint: Skin/Abscess/Foreign Body Stated complaint: Rash Time Seen by Provider: 09/12/23 20:11 History of Present Illness: 23-year-old female comes in today for concerns of increased length of the redness due to lymphangitis secondary to insect bite. Patient was seen yesterday and started on cephalexin for possible cellulitis. Patient appears nontoxic. Patient endorses itching at the area with some mild pain. Patient believes that she was bit Wednesday night by something in her sleep. Patient does have a small punctate lesion to a area of circular erythema in the center and then a streak running up the inner left arm. The area stops just before the axilla. Review of Systems General: Reports: 10 or more systems reviewed and unremarkable except in HPI and below PFSH ED PFSH: Medical History No pertinent past medical history neghx: htn,dm,dvt/pe Surgical History No history of previous surgery Family History Grandmother Breast cancer Mother Hyperlipidemia Hypertension Stroke Family history of thyroid problem Family history of premature coronary artery disease Grandfather Family history of thyroid problem Maternal grandfather Family/Other Family history of thyroid problem Maternal uncle Social History Smoking and tobacco/nicotine status: current some day tobacco/nicotine user e-cigarettes E-Cigarette Details: vaporizer device and with nicotine Second hand smoke exposure: No Alcohol intake: never Substance/Drug Use: current Substance/Drug use frequency: few times a month Physical Exam Const: COMMON NORMALS: alert HENMT: COMMON NORMALS: normocephalic HEAD & SCALP: normocephalic Neck/C-Spine: COMMON NORMALS: full ROM Resp: COMMON NORMALS: normal respiratory effort and clear to auscultation bilaterally AUSCULTATION: clear to auscultation bilaterally Cardio: COMMON NORMALS: regular rate and regular rhythm RATE: regular rate RHYTHM: regular rhythm GI: COMMON NORMALS: Soft to palpation and non-tender PALPATION: Yes Soft to palpation Back/Pelvis: COMMON NORMALS: thoracic and lumbar spine normal to inspection Extremity: COMMON NORMALS: normal to inspection and full ROM Neuro: SENSORIUM/ORIENTATION: Yes alert Skin: COMMON NORMALS: turgor normal GENERAL SKIN EXAM: turgor normal Course Vital Signs: Vital signs: Vital Signs Temperature 97.9 F 09/12/23 20:03 Pulse Rate 89 09/12/23 20:07 Respiratory Rate 16 09/12/23 20:07 Blood Pressure 128/80 09/12/23 20:03 Pulse Oximetry 97 09/12/23 20:07 Oxygen Delivery Me thod Room Air 09/12/23 20:07 MDM - Skin/Abscess/Foreign Bdy Medicial Decision Making Patient comes in today for concerns of lengthening of the area of redness where she was being treated for possible cellulitis with lymphangitis. Patient was started on cephalexin yesterday. Patient reports a increase in temperature that not greater than 100.4. Patient does report some mild itching and pain along the area of redness. Differential diagnosis includes thrombophlebitis, lymphangitis secondary to insect bite, cellulitis, infectious meningitis. CBC was normal. CMP was normal. No elevation and sed rate or CRP was noted. Lactate was 1.2. Patient was given 2 g of cefepime and 10 mg of dexamethasone. Patient was also treated for a headache with diphenhydramine 12.5, 15 mg of ketorolac, and 10 mg of metoclopramide. We will add doxycycline for further coverage of bacteria for possible cellulitis. I do believe that this is might be just a reaction to an insect bite versus a true infection. Discussed with patient need for monitoring for fever and increasing redness and swelling to the arm. Patient reports understanding and agreed to plan. Lab Data 09/12/23 20:28 09/12/23 20:28 Laboratory Results WBC 10.10 10^3/uL (3.29-11.43) 09/12/23 20: RBC 4.73 10^6/uL (3.85-5.65) 09/12/23 20:28 Hgb 12.50 g/dL (11.27-16.99) 09/12/23 20:28 Hct 39.0 % (36-47) 09/12/23 20:28 MCV 82.5 fl (85-98) L 09/12/23 20: MCH 26.4 pg (27-33) L 09/12/23: MCHC 32.1 g/dL (30-55) 09/12/23: RDW 13.7 % (12.1-15.1) 09/12/23: Plt Count 270 10^3/cmm (157-399) 09/12/23: MPV 9.1 fL (7.4-10.4) 09/12/23: Neut % (Auto) 58.5 % 09/12/23: Lymph % (Auto) 32.4 % 09/12/23: [place] % (Auto) 5.0 % 09/12/23: Eos % (Auto) 3.1 % 09/12/23 Baso % (Auto) 0.5 % 09/12/23 Neut # (Auto) 5.92 10^3/uL (1.8-7.7) 09/12/23: Lymph # (Auto) 3.3 10^3/uL (0.8-4.8) 09/12/23: [place] # (Auto) 0.5 10^3/uL (0.2-0.9) 09/12/23: Eos # (Auto) 0.3 10^3/uL (0.0-0.8) 09/12/23: Baso # (Auto) 0.1 10^3/uL (0.0-0.1) 09/12/23 Nucleated RBC % (auto) 0 % 09/12/23 Nucleated RBCs # 0.0 /100WBC 09/12/23: ESR 6 mm/hr (0-15) 09/12/23 20: Sodium 142 mmol/L (136-145) 09/12/23: Potassium 3.9 mmol/L (3.5-5.1) 09/12/23: Chloride 106 mmol/L (98-107) 09/12/23: Carbon Dioxide 25 mmol/L (22-29) 09/12/23: Anion Gap 14.9 (5-19) 06/02/24 20:28 BUN 7 mg/dL (6-20) 09/12/23 20:28 Creatinine 0.5 mg/dL (0.5-0.9) 09/12/23 20:28 GFR Calculation 154.3 mL/min (90-130) H 09/12/23 20:28 Glucose 100 mg/dL (65-115) 09/12/23 20:28 Calculated Osmolality 292 mOsm/kg (285-295) 09/12/23 20:28 Lactic Acid 1.2 mmol/L (0.5-2.2) 09/12/23 20:28 Calcium 8.3 mg/dL (8.5-10.5) L 09/12/23 20:28 Total Bilirubin 0.2 mg/dL (0.15-1.2) 09/12/23 20:28 AST 11 U/L (0-32) 09/12/23 20:28 ALT 12 U/L (0-33) 09/12/23 20:28 Alkaline Phosphatase 98 U/L (35-105) 09/12/23 20:28 C-Reactive Protein 3.0 mg/L (0.0-4.9) 09/12/23 20:28 Total Protein 7.1 g/dL (6.6-8.7) 09/12/23 20:28 Albumin 4.4 g/dL (3.5-5.2) 09/12/23 20:28 Globulin 2.7 g/dL (1.3-4.6) 09/12/23 20:28 No radiology studies performed this visit Discharge Plan Discharge Patient Disposition: Home Clinical Impression: Lymphangitis Condition: Stable Prescriptions: New doxycycline hyclate 100 mg capsule 100 mg PO BID 5 Days Qty: 10 0RF No Action (DME) [place] Splint, right fifth digit See Rx Instructions .Route .MEDSUPPLY Qty: 1 0RF Rx Instructions: As directed (DME) [place] Splint, right fifth digit See Rx Instructions .Route .MEDSUPPLY Qty: 1 0RF Rx Instructions: As directed (DME) fast form splint, right See Rx Instructions .Route .MEDSUPPLY Qty: 1 0RF Rx Instructions: As directed cephalexin 500 mg capsule 500 mg PO TID 7 Days Qty: 21 0RF Naprosyn 500 mg tablet 500 mg PO BID PRN (Reason: pain) Qty: 20 0RF Discharge Orders: Discharge ED (Routine); Ordered 09/12/23 Ordered By: Bryon Lyn Referrals: Juan Rodriguez MD [Primary Care Provider] - Discharge Diet: Usual diet Discharge Activity: Increase activity as tolerated Patient Instructions: Lymphangitis (ED) Activity Restrictions/Additional Instructions: Drink plenty of water with medications. Continue cephalexin. Take doxycycline along with cephalexin for the next 5 days. Use acetaminophen and/or ibuprofen as needed for further pain relief. Activity as tolerated. Follow-up with primary care in 3 days for recheck. Return to ER for worsening symptoms such as fever greater than 100.4, increasing redness and swelling of the arm, or new concerns. Coding Level of Care Code ED Embroidery Finisher for Chg Fwd Documented by User: Pedro Messina, 09/12/23 21:34 HPI - Skin/Abscess/Foreign Bdy General: Chief complaint: Skin/Abscess/Foreign Body Stated complaint: Rash Time Seen by Provider: 09/12/23 20:11 [facility] ED PFSH: Medical History No pertinent past medical history neghx: htn,dm,dvt/pe Surgical History No history of previous surgery Family History Grandmother Breast cancer Mother Hyperlipidemia Hypertension Stroke Family history of thyroid problem Family history of premature coronary artery disease Grandfather Family history of thyroid problem Maternal grandfather Family/Other Family history of thyroid problem Maternal uncle Social History Smoking and tobacco/nicotine status: current some day tobacco/nicotine user e-cigarettes E-Cigarette Details: vaporizer device and with nicotine Second hand smoke exposure: No Alcohol intake: never Substance/Drug Use: current Substance/Drug use frequency: few times a month Course Vital Signs: Vital signs: Vital Signs Temperature 97.9 F 09/12/23 20:03 Pulse Rate 89 09/12/23 20:07 Respiratory Rate 16 09/12/23 20:07 Blood Pressure 128/80 09/12/23 20:03 Pulse Oximetry 97 09/12/23 20:07 Oxygen Delivery Me thod Room Air 09/12/23 20:07 MDM - Skin/Abscess/Foreign Bdy Medicial Decision Making Patient comes in today for concerns of lengthening of the area of redness where she was being treated for possible cellulitis with lymphangitis. Patient was started on cephalexin yesterday. Patient reports a increase in temperature that not greater than 100.4. Patient does report some mild itching and pain along the area of redness. Differential diagnosis includes thrombophlebitis, lymphangitis secondary to insect bite, cellulitis, infectious meningitis. CBC was normal. CMP was normal. No elevation and sed rate or CRP was noted. Lactate was 1.2. Patient was given 2 g of cefepime and 10 mg of dexamethasone. Patient was also treated for a headache with diphenhydramine 12.5, 15 mg of ketorolac, and 10 mg of metoclopramide. We will add doxycycline for further coverage of bacteria for possible cellulitis. I do believe that this is might be just a reaction to an insect bite versus a true infection. Discussed with patient need for monitoring for fever and increasing redness and swelling to the arm. Patient reports understanding and agreed to plan. This patient was originally seen by GANESH Garza.? I agree with his history, evaluation, and treatment. Lab Data 09/12/23 20:28 09/12/23 20:28 Laboratory Results WBC 10.10 10^3/uL (3.29-11.43) 09/12/23 20: RBC 4.73 10^6/uL (3.85-5.65) 09/12/23 20:28 Hgb 12.50 g/dL (11.27-16.99) 09/12/23 20:28 Hct 39.0 % (36-47) 09/12/23 20: MCV 82.5 fl (85-98) L 09/12/23 20:28 MCH 26.4 pg (27-33) L 09/12/23 20: MCHC 32.1 g/dL (30-55) 09/12/23: RDW 13.7 % (12.1-15.1) 09/12/23: Plt Count 270 10^3/cmm (157-399) 09/12/23: MPV 9.1 fL (7.4-10.4) 09/12/23: Neut % (Auto) 58.5 % 09/12/23: Lymph % (Auto) 32.4 % 09/12/23: [place] % (Auto) 5.0 % 09/12/23: Eos % (Auto) 3.1 % 09/12/23 Baso % (Auto) 0.5 % 09/12/23 Neut # (Auto) 5.92 10^3/uL (1.8-7.7) 09/12/23: Lymph # (Auto) 3.3 10^3/uL (0.8-4.8) 09/12/23: [place] # (Auto) 0.5 10^3/uL (0.2-0.9) 09/12/23: Eos # (Auto) 0.3 10^3/uL (0.0-0.8) 09/12/23: Baso # (Auto) 0.1 10^3/uL (0.0-0.1) 09/12/23: Nucleated RBC % (auto) 0 % 09/12/23 Nucleated RBCs # 0.0 /100WBC 09/12/23: ESR 6 mm/hr (0-15) 09/12/23 20: Sodium 142 mmol/L (136-145) 09/12/23: Potassium 3.9 mmol/L (3.5-5.1) 09/12/23: Chloride 106 mmol/L (98-107) 09/12/23: Carbon Dioxide 25 mmol/L (22-29) 09/12/23: Anion Gap 14.9 (5-19) 09/12/23: BUN 7 mg/dL (6-20) 06/02/24 20:28 Creatinine 0.5 mg/dL (0.5-0.9) 09/12/23 20:28 GFR Calculation 154.3 mL/min (90-130) H 09/12/23 20:28 Glucose 100 mg/dL (65-115) 09/12/23 20:28 Calculated Osmolality 292 mOsm/kg (285-295) 09/12/23 20:28 Lactic Acid 1.2 mmol/L (0.5-2.2) 09/12/23 20:28 Calcium 8.3 mg/dL (8.5-10.5) L 09/12/23 20:28 Total Bilirubin 0.2 mg/dL (0.15-1.2) 09/12/23 20:28 AST 11 U/L (0-32) 09/12/23 20:28 ALT 12 U/L (0-33) 09/12/23 20:28 Alkaline Phosphatase 98 U/L (35-105) 09/12/23 20:28 C-Reactive Protein 3.0 mg/L (0.0-4.9) 09/12/23 20:28 Total Protein 7.1 g/dL (6.6-8.7) 09/12/23 20:28 Albumin 4.4 g/dL (3.5-5.2) 09/12/23 20:28 Globulin 2.7 g/dL (1.3-4.6) 09/12/23 20:28 Discharge Plan Discharge Patient Disposition: Home Clinical Impression: Lymphangitis Condition: Stable Prescriptions: New doxycycline hyclate 100 mg capsule 100 mg PO BID 5 Days Qty: 10 0RF No Action (DME) [place] Splint, right fifth digit See Rx Instructions .Route .MEDSUPPLY Qty: 1 0RF Rx Instructions: As directed (DME) [place] Splint, right fifth digit See Rx Instructions .Route .MEDSUPPLY Qty: 1 0RF Rx Instructions: As directed (DME) fast form splint, right See Rx Instructions .Route .MEDSUPPLY Qty: 1 0RF Rx Instructions: As directed cephalexin 500 mg capsule 500 mg PO TID 7 Days Qty: 21 0RF Naprosyn 500 mg tablet 500 mg PO BID PRN (Reason: pain) Qty: 20 0RF Discharge Orders: Discharge ED (Routine); Ordered 09/12/23 Ordered By: Bryon Lyn Referrals: Juan Rodriguez MD [Primary Care Provider] - Discharge Diet: Usual diet Discharge Activity: Increase activity as tolerated Patient Instructions: Lymphangitis (ED) Activity Restrictions/Additional Instructions: Drink plenty of water with medications. Continue cephalexin. Take doxycycline along with cephalexin for the next 5 days. Use acetaminophen and/or ibuprofen as needed for further pain relief. Activity as tolerated. Follow-up with primary care in 3 days for recheck. Return to ER for worsening symptoms such as fever greater than 100.4, increasing redness and swelling of the arm, or new concerns. Coding Level of Care Code ED Embroidery Finisher for Ivett Martinez
[2023-09-12 20:45] LABS: Basophils # 0.1 10^3/uL (0.0-0.1); Basophils % 0.5 %; Eosinophils # 0.3 10^3/uL (0.0-0.8); Eosinophils % 3.1 %; Erythrocyte Sedimentation Rate 6 mm/hr (0-15); Lymphocytes # 3.3 10^3/uL (0.8-4.8); Lymphocytes % 32.4 %; Mean Corpuscular HGB Conc 32.1 g/dL (30-55); Mean Corpuscular Hemoglobin 26.4 pg (27-33); Mean Corpuscular Volume 82.5 fl (85-98); Mean Platelet Volume 9.1 fL (7.4-10.4); Monocytes # 0.5 10^3/uL (0.2-0.9); Neutrophils # 5.92 10^3/uL (1.8-7.7); Neutrophils % 58.5 %; Nucleated Red Blood Cells % 0 %; Platelet Count 270 10^3/cmm (157-399); Red Blood Count 4.73 10^6/uL (3.85-5.65); Red Cell Distribution Width 13.7 % (12.1-15.1)
[2023-09-12 20:53] LABS: Alanine Aminotransferase 12 U/L (0-33); Albumin Level 4.4 g/dL (3.5-5.2); Alkaline Phosphatase 98 U/L (35-105); Anion Gap 14.9 (5-19); Aspartate Amino Transferase 11 U/L (0-32); Blood Urea Nitrogen 7 mg/dL (6-20); Calcium 8.3 mg/dL (8.5-10.5); Carbon Dioxide 25 mmol/L (22-29); Chloride 106 mmol/L (98-107); Creatinine Clr Calc Pharmacy 199.2348; Globulin 2.7 g/dL (1.3-4.6); Glomerular Filtration Rate 154.3 mL/min (90-130); Glucose 100 mg/dL (65-115); Lactic Sepsis W/Reflex 1.2 mmol/L (0.5-2.2); Osmolality Calculated 292 mOsm/kg (285-295); Potassium 3.9 mmol/L (3.5-5.1); Sodium 142 mmol/L (136-145); Total Bilirubin 0.2 mg/dL (0.15-1.2); Total Protein 7.1 g/dL (6.6-8.7)
[2023-09-12] MEDS: sodium chloride 0.9% 1,000 ML 999 ML IV (20:53)
[2023-09-12] MEDS: cefepime 2,000 MG in sodium chloride 0.9% (plus) 50 ML 100 MG IV (20:55)
[2023-09-12] MEDS: metoclopramide 5 mg/mL SDV 2 mL 10 MG IVP (20:58)
[2023-09-12] MEDS: diphenhydrAMINE 50 mg/mL SDV 1mL 12.5 MG IVP (20:59)
[2023-09-12] MEDS: ketorolac 30 mg/mL INJ 15 MG IVP (21:02)
[2023-09-12] MEDS: dexamethasone 10 mg/mL INJ IVP (21:04)
[2023-09-12 21:53] VITALS: PULSE 73; RESP 16; O2SAT 97
== END 2023-09-12 21:54 | disposition home or self-care (01) ==
PROVIDERS: Emergency Provider Nurse Practitioner Family; PCP Family Medicine
DX: I89.1 Lymphangitis (principal); F17.290 Nicotine dependence, other tobacco product, uncomplicated
CPT/HCPCS: 36415; 80053; 83605; 85025; 85651; 86140; 96374; 96375; 99284; J0692; J1100; J1200; J1885; J2765; J7030

== ENCOUNTER 2024-09-23 16:23 | Emergency (ER) | payer SELFPAY ==
--- NOTE | 2024-09-23 16:26 | XRR_ITS ---
PROCEDURE INFORMATION: Exam: XR Left Shoulder Exam date and time: 09/23/2024 4:52 PM Age: 24 years old Clinical indication: Pain; Shoulder; Left; Additional info: Lt shoulder/breast pain with limited rom; PT currently breast feeding with HX of mastitis TECHNIQUE: Imaging protocol: Radiologic exam of the left shoulder. Views: 2 or more views. COMPARISON: No relevant prior studies available. FINDINGS: Bones/joints: Normal. Soft tissues: Normal. XR/XR shoulder LT min 2V* [id number] IMPRESSION: No acute findings.
[2024-09-23 16:29] VITALS: BP 126/77; PULSE 93; RESP 16; TEMP 36.8; O2SAT 99; BMI 20.7
--- NOTE | 2024-09-23 16:44 | ED_ITS ---
HPI - General Adult General: Chief complaint: General Medical Stated complaint: left shoulder pain, right breast pain Time Seen by Provider: 09/23/24 16:26 History of Present Illness: 24-year-old female presents to the [facility] ency room complaining of left shoulder pain she been doing some lifting last couple days she also has some swelling in the right breast she still is breast-feeding her 1-year-old. Not take anything for pain no direct trauma or falls. No fever sweats chills no abnormal drainage from the breast. Associated symptoms: Deny chest pain, dyspnea or rash Related Data Previous Rx's ?Medication ?Instructions ?Recorded naproxen 500 mg tablet (Naprosyn) 500 mg PO BID PRN pa in #20 tabs 06/28/23 Bruner Splint, right fifth digit #1 ea 07/02/23 Bruner Splint, right fifth digit #1 ea 07/02/23 fast form splint, right #1 ea 07/19/23 cephalexin 500 mg tablet 500 mg PO TID 7 days #21 tab s 09/23/24 diclofenac sodium 75 mg 75 mg PO Q12H PRN pain #20 t abs 09/23/24 tablet,delayed release Allergies Allergy/AdvReac Type Severity Reaction Status Date / Time No Known Allergies Allergy Verified 01/05/24 13:21 Review of Systems Const: Denies: fever(s) or chills Card: Denies: chest pain Resp: Denies: dyspnea GI: Denies: abdominal pain : Denies: dysuria, urinary frequency or urinary urgency Musc: Denies: neck pain or back pain Skin/Breast: Denies: rash PFSH ED PFSH: Medical History No pertinent past medical history neghx: htn,dm,dvt/pe Surgical History No history of previous surgery Family History Grandmother Breast cancer Mother Hyperlipidemia Hypertension Stroke Family history of thyroid problem Family history of premature coronary artery disease Grandfather Family history of thyroid problem Maternal grandfather Family/Other Family history of thyroid problem Maternal uncle Social History Smoking and tobacco/nicotine status: current some day tobacco/nicotine user e- cigarettes E-Cigarette Details: vaporizer device and with nicotine Second hand smoke exposure: No Alcohol intake: never Substance/Drug Use: current Substance/Drug use frequency: few times a month Female Reproductive History: Date of last menstrual period: 09/23/24 Physical Exam Const: COMMON NORMALS: no acute distress GENERAL APPEARANCE: cooperative and comfortable ORIENTATION/CONSCIOUSNESS: Yes awake, Yes oriented to person, Yes oriented to place and Yes oriented to time HENMT: COMMON NORMALS: normocephalic, atraumatic and hearing grossly normal bilaterally HEAD & SCALP: normocephalic and atraumatic Lymph: OTHER: Examination of the right breast with nurse present at the 10 o'clock position it is firm tender to the touch slightly warm minimal overlying erythema of the skin no drainage from the areola or nipple. Resp: COMMON NORMALS: normal respiratory effort, No retractions, No use of accessory muscles and clear to auscultation bilaterally AUSCULTATION: clear to auscultation bilaterally Cardio: COMMON NORMALS: regular rate, regular rhythm and No murmurs present (Cardio) RATE: regular rate RHYTHM: regular rhythm GI: COMMON NORMALS: Soft to palpation and No hepatosplenomegaly present AUSCULTATION: Yes normoactive bowel sounds PALPATION: Yes Soft to palpation, No Tenderness to palpation present (GI), No Guarding due to palpation present (GI) and Yes No hepatosplenomegaly present Extremity: COMMON NORMALS: normal to inspection, capillary refill normal, no clubbing, cyanosis or edema, no calf tenderness and no pedal edema OTHER: Examination left shoulder negative impingement sign left shoulder neurovascular intact no abnormalities at range of motion no obvious deformities no crepitus. Neuro: SENSORIUM/ORIENTATION: Yes oriented to person, Yes oriented to place and Yes oriented to time Skin: COMMON NORMALS: no rashes or lesions noted GENERAL SKIN EXAM: no rashes or lesions noted Course Vital Signs: Vital signs: Vital Signs Temperature 98.2 F 09/23/24 16:29 Pulse Rate 89 09/23/24 17:23 Respiratory Rate 16 09/23/24 16:29 Blood Pressure 126/77 09/23/24 16:29 Pulse Oximetry 96 09/23/24 17:23 Oxygen Delivery Me thod Room Air 09/23/24 16:29 MDM - General Adult Medical Decision Making Mild mastitis. Start on Keflex. Shoulder x-ray negative. Likely strain. Did exam through range of motion negative impingement sign. Follow-up with primary care for not improving Lab Data Radiology Impressions Shoulder X-Ray 09/23/24 16:26 IMPRESSION: No acute findings. All radiology interpretation(s) finalized by discharge Discharge Plan Discharge Patient Disposition: Home Clinical Impression: Mastitis in female Left shoulder strain Qualifiers: Encounter type: initial encounter Qualified Code(s): S46.912A - Strain of unspecified muscle, fascia and tendon at shoulder and upper arm level, left arm, initial encounter Condition: Stable Prescriptions: New cephalexin 500 mg tablet 500 mg PO TID 7 Days Qty: 21 0RF diclofenac sodium 75 mg tablet,delayed release (DR/EC) 75 mg PO Q12H PRN (Reason: pain) Qty: 20 0RF No Action (DME) Bruner Splint, right fifth digit See Rx Instructions .Route .MEDSUPPLY Qty: 1 0RF Rx Instructions: As directed (DME) Bruner Splint, right fifth digit See Rx Instructions .Route .MEDSUPPLY Qty: 1 0RF Rx Instructions: As directed (DME) fast form splint, right See Rx Instructions .Route .MEDSUPPLY Qty: 1 0RF Rx Instructions: As directed Naprosyn 500 mg tablet 500 mg PO BID PRN (Reason: pain) Qty: 20 0RF Discharge Orders: Discharge ED (Routine); Ordered 09/23/24 Ordered By: Angelo Choudhury Referrals: Juan Rodriguez MD [Primary Care Provider, Family Practice] Discharge Diet: Usual diet Discharge Activity: Resume usual activity Patient Instructions: Opioid Safety, Pain Management Activity Restrictions/Additional Instructions: Thank you for choosing [facility] for your healthcare needs today. It is very important that you follow up as instructed or that you return to the Emergency Department should you have concerns or if your condition changes or worsens in any way. You were seen in the emergency room with complaints of left shoulder pain and discomfort in your right breast. Does appear you have a mild mastitis in the right breast would recommend oral antibiotics 1 3 times a day for 7 days. X-ray of your left shoulder did not show any acute fractures based on your [place] exam suspect you have a mild tendinitis if your symptoms persist follow-up with your primary care doctor Stand Alone Forms: Work/School Release Print Language: Arabic Coding Level of Care Code ED Church Supervisor for Ivett Martinez
[2024-09-23 17:23] VITALS: PULSE 89; O2SAT 96
== END 2024-09-23 17:23 | disposition home or self-care (01) ==
PROVIDERS: Emergency Provider Family Medicine; PCP Family Medicine
DX: S46.912A Strain of unspecified muscle, fascia and tendon at shoulder and upper arm level, left arm, initial encounter (principal); F17.290 Nicotine dependence, other tobacco product, uncomplicated; X50.0XXA Overexertion from strenuous movement or load, initial encounter
CPT/HCPCS: 73030; 99283

== ENCOUNTER 2024-11-18 19:53 | Emergency (ER) | payer MEDICAID, SELFPAY ==
[2024-11-18 20:00] VITALS: BP 138/83; PULSE 87; RESP 14; TEMP 36.4; O2SAT 99; BMI 19.9
--- OUTSIDE RECORDS SUMMARY | 2024-11-18 20:03 | XMS_ITS | Patient Health Record ---
Author Organization [facility] Address [address] [place] [address] Care Team Providers Care Wafer Slicer Name Role Phone Cheryl Carranza Primary Care Provider [phone] Reason For Referral No Information Immunizations Vaccine Route Administration Date Status Comme nts Afluria Quadrivalent Influenza Vaccine 3 years+ IM Intramuscular 03/20/2020 Administered Social History Tobacco Use: Social History Observation Description Date Details (start date - stop date) Current Smoker NA - NA Social History Drugs/Alcohol: Social Info Question Answer Notes Alcohol Screen (Audit-C) Did you have a drink containing alcohol in the past year? Yes How often did you have a drink containing alcohol in the past year? Monthly or less (1 point) How many drinks did you have on a typical day when you were drinking in the past year? 5 or 6 drinks (2 points) How often did you have 6 or more drinks on one occasion in the past year? Less than monthly (1 point) Points 4 Interpretation Positive Drugs Have you used drugs other than those for medical reasons in the past 12 months? Yes Marijuana? Yes Are you still using? Yes Are you in a treatment program? No Do you want treatment? No Tobacco Use: Social Info Question Answer Notes xTobacco Use/Smoking Are you a current smoker How often do you smoke cigarettes? every day How many cigarettes a day do you smoke? 11-20 How soon after you wake up do you smoke your first cigarette? within 5 minutes Are you interested in quitting? Thinking about quitting Additional Details Category Social Info Options Details Drugs/Alcohol: Do you smoke marijuana? De nies Plan Of Treatment No Information Insurance Providers Payer Name Payer Address Payer Phone Subscriber Number Group Number Insured Name Patient Relationship to Insured Coverage Start Date Coverage End Date [facility] [address] [address] [place] [phone] [id number] Sheyla Oconnor Self - patient is the insured Medical (General) History Medical History History ICD Code PREVENTIVE HEALTH MAINTENANCE Colonoscopy-Has never been done Occult Stool: Has never been done Cologuard: Has never been done Endoscopy- Has never been done Nuclear stress test- Has never been done Exercise stress test- Has never been don e Echocardiogram- Has never been done Carotid doppler- Has never been done CT chest- Has never been done Chest xray: Has never been done PFTS- Has never been done Sleep Study: Has never been done Bone Density: Has never been done Mammogram- Has never been done Pap- Has never been done Influenza vaccine- Has never been done Pneumococcal vaccine- Has never been don e Prenvar 13- Has never been done Shingles vaccine- Has never been done Shingrix- Has never been done Tetanus vaccine- 2014 Pertussis Vaccine: Has never been done Hep C screenin08/2018 which was negati ve Eye Exam: 2014 Microalbumin (urine): Has never been don e GYNECOLOGICAL HISTORY Last menses- 04/10/2019 control- None PAST MEDICAL HISTORY Hypothyroidism Generalized anxiety disorder Depression
[2024-11-18 20:33] LABS: Hematocrit 41.9 % (36-47); Hemoglobin 13.20 g/dL (11.27-16.99); Mean Corpuscular HGB Conc 31.5 g/dL (30-55); Mean Corpuscular Hemoglobin 26.1 pg (27-33); Mean Corpuscular Volume 83.0 fl (85-98); Nucleated Red Blood Cells % 0 %; Platelet Count 230 10^3/cmm (157-399); Red Blood Count 5.05 10^6/uL (3.85-5.65); White Blood Count 10.76 10^3/uL (3.29-11.43)
[2024-11-18 20:47] LABS: Alanine Aminotransferase 12 U/L (0-33); Albumin Level 4.6 g/dL (3.5-5.2); Alkaline Phosphatase 55 U/L (35-105); Anion Gap 13.4 (5-19); Aspartate Amino Transferase 13 U/L (0-32); Blood Urea Nitrogen 15 mg/dL (6-20); Calcium 9.4 mg/dL (8.5-10.5); Carbon Dioxide 25 mmol/L (22-29); Chloride 102 mmol/L (98-107); Creatinine Clr Calc Pharmacy 152.6732; Globulin 2.7 g/dL (1.3-4.6); Glucose 92 mg/dL (65-115); Lipase 25 U/L (13-60); Osmolality Calculated 282 mOsm/kg (285-295); Potassium 4.4 mmol/L (3.5-5.1); Sodium 136 mmol/L (136-145); Total Protein 7.3 g/dL (6.6-8.7)
[2024-11-18] MEDS: LORazepam 1 MG/0.5 ML injection 0.5 MG IVP (20:54)
[2024-11-18 20:58] VITALS: BP 111/71; PULSE 62; RESP 16; O2SAT 99
[2024-11-18 21:07] LABS: Glucose Urine UA Negative (Normal); Nitrate Urine Negative (Negative); Specific Gravity, Urine 1.016 (1.005-1.030)
[2024-11-18 21:10] VITALS: BP 119/77; PULSE 56; RESP 16; O2SAT 98
[2024-11-18 21:12] LABS: Add Urine Microscopic? YES
[2024-11-18 21:14] LABS: PCP Screen Urine Negative (Negative)
[2024-11-18 21:20] LABS: HCG Qualitative Urine. Negative (Negative)
[2024-11-18 21:37] VITALS: BP 117/77; PULSE 66; RESP 16; O2SAT 100
[2024-11-18 21:48] VITALS: BP 117/77; PULSE 66; RESP 16; O2SAT 99
--- NOTE | 2024-11-18 22:22 | W.ED.NAVMDI ---
Documented by User: RAH Molina 11/18/24 22:25 HPI - Nausea/Vomiting/Diarrhea General: Chief complaint: Nausea/Vomiting/Diarrhea Stated complaint: n/v. not preg. Time Seen by Provider: 11/18/24 19:58 Source: patient Mode of arrival: ambulatory Limitations: no limitations History of Present Illness: Patient is a 24-year-old female who presents the emergency department complaining of nausea and vomiting for a year. States that the symptoms are constant, she has never seen anyone for this aside from when she first started having symptoms and ended up having a colonoscopy. Patient states she was diagnosed with gastroenteritis at that time. She does smoke marijuana daily. Denies . Denies pain or other symptoms. She states that she does work outside daily for her job. Reports adequate fluid intake. No other symptoms reported at this time. Her vitals are stable. MD elicited complaint: nausea and vomiting Onset (ago): year(s) Associated nausea: Yes Associated abdominal pain: No Context: marijuana use Associated symtoms: Reports nausea; Denies chest pain, diaphoresis, dizziness, dysuria, headache(s) or palpitations Related Data Previous Rx's ?Medication ?Instructions ?Recorded naproxen 500 mg tablet (Naprosyn) 500 mg PO BID PRN pain #20 tabs 06/28/23 Holdrege Splint, right fifth digit #1 ea 07/02/23 Holdrege Splint, right fifth digit #1 ea 07/02/23 fast form splint, right #1 ea 07/19/23 diclofenac sodium 75 mg 75 mg PO Q12H PRN pain #20 tabs 09/23/24 tablet,delayed release promethazine 25 mg rectal 25 mg CO Q6H PRN nausea and 11/18/24 suppository vomiting #12 ea promethazine 25 mg tablet 25 mg PO TID #20 tabs 11/18/24 Allergies Allergy/AdvReac Type Severity Reaction Status Date / Time No Known Allergies Allergy Verified 11/18/24 20:03 Review of Systems General: Reports: 10 or more systems reviewed and unremarkable except in HPI and below Const: Denies: fever(s), chills, change in appetite, change in weight or diaphoresis ENMT: Denies: throat pain or hoarseness Card: Denies: chest pain, palpitations or lightheadedness Resp: Denies: dyspnea, productive cough or wheezing GI: Reports: nausea and vomiting; Denies: abdominal pain or diarrhea : Denies: flank pain, difficulty voiding, dysuria, urinary frequency or urinary urgency Musc: Denies: neck pain or back pain Skin/Breast: Denies: rash or new lesions Neuro: Denies: headache(s) or dizziness PFSH ED PFSH: Medical History No pertinent past medical history neghx: htn,dm,dvt/pe Surgical History No history of previous surgery Family History Grandmother Breast cancer Mother Hyperlipidemia Hypertension Stroke Family history of thyroid problem Family history of premature coronary artery disease Grandfather Family history of thyroid problem Maternal grandfather Family/Other Family history of thyroid problem Maternal uncle Social History Smoking and tobacco/nicotine status: current some day tobacco/nicotine user e-cigarettes E-Cigarette Details: vaporizer device and with nicotine Second hand smoke exposure: No Alcohol intake: never Substance/Drug Use: current Substance/Drug use frequency: few times a month Physical Exam Const: COMMON NORMALS: no acute distress, average body habitus, patient oriented x3, no limitations, healthy appearing, alert and well nourished GENERAL APPEARANCE: cooperative and comfortable ORIENTATION/CONSCIOUSNESS: Yes awake Eye: COMMON NORMALS: Equal, round and reactive pupils present, EOMs intact bilaterally, conjunctivae normal and normal visual vasquez by confrontation CONJUNCTIVA: Yes conjunctivae normal PUPIL: Yes Equal, round and reactive pupils present Neck/C-Spine: COMMON NORMALS: full ROM, supple, no meningeal signs and no JVD Resp: COMMON NORMALS: normal respiratory effort, No retractions, No use of accessory muscles and clear to auscultation bilaterally AUSCULTATION: clear to auscultation bilaterally, no crackles, no rales, no rhonchi and no wheezes Cardio: COMMON NORMALS: no JVD, regular rate, regular rhythm, S1 normal heart sound present, S2 normal heart sound present, No gallops present (Cardio), No clicks present (Cardio), No murmurs present (Cardio), No rub (Cardio) and Peripheral pulses 2+ throughout RATE: regular rate RHYTHM: regular rhythm HEART SOUNDS: S1 normal heart sound present and S2 normal heart sound present PERIPHERAL PULSES: Peripheral pulses 2+ throughout GI: COMMON NORMALS: Normal to inspection, nondistended, normoactive bowel sounds present, Soft to palpation, non-tender, No hepatosplenomegaly present and no masses AUSCULTATION: Yes normoactive bowel sounds PALPATION: Yes Soft to palpation, No Guarding due to palpation present (GI), No Rigid due to palpation and Yes No hepatosplenomegaly present RECTAL EXAM: deferred Extremity: COMMON NORMALS: normal to inspection and full ROM Neuro: COMMON NORMALS: patient oriented x3, moves all extremities, no focal motor deficits and no sensory deficits noted SENSORIUM/ORIENTATION: Yes alert MENINGEAL SIGNS: Yes no meningeal signs Psych: COMMON NORMALS: mental status grossly normal, cooperative and speech normal SPEECH: Yes normal speech Skin: COMMON NORMALS: no rashes or lesions noted GENERAL SKIN EXAM: no rashes or lesions noted Course Vital Signs: Vital signs: Vital Signs Temperature 97.6 F 11/18/24 20:00 Pulse Rate 66 11/18/24 21:48 Respiratory Rate 16 11/18/24 21:48 Blood Pressure 117/77 11/18/24 21:48 Pulse Oximetry 99 11/18/24 21:48 MDM - Nausea/Vomiting/Diarrhea Medical Decision Making Patient has had a year of nausea and vomiting, states that she takes Zofran regularly and also smokes marijuana daily. She has never seen a provider for this other than initial onset of symptoms where she states she had colonoscopy showing gastroenteritis. At this time she has no specific new complaints, just states that she is concerned with the longevity of symptoms. Vitals have been stable throughout her ED course. The physical exam was normal. Her lab work does not show any abnormalities, normal CBC and metabolic panel. Urinalysis negative, negative, lipase negative. Drug screen showing positive for marijuana, cannot rule out that this may be contributing to her symptoms. With the longevity of her symptoms, and no reliable follow-up with primary care I will go ahead and refer her to general surgery for general reevaluation. She is given Phenergan p.o. and CO to take at home alternating, and other general return precautions discussed. She did note to me that she has had anxiety over the same timeframe, so 0.5 Ativan through the IV was attempted to see if this helps her symptoms and she states that she feels about the same. Less likely that this is the cause. Lab Data 11/18/24 20:26 11/18/24: Laboratory Results WBC 10.76 10^3/uL (3.29-11.43) 11/18/24: RBC 5.05 10^6/uL (3.85-5.65) 11/18/24 20: Hgb 13.20 g/dL (11.27-16.99) 11/18/24: Hct 41.9 % (36-47) 11/18/24: MCV 83.0 fl (85-98) L 11/18/24: MCH 26.1 pg (27-33) L 11/18/24: MCHC 31.5 g/dL (30-55) 11/18/24: RDW 13.4 % (12.1-15.1) 11/18/24: Plt Count 230 10^3/cmm (157-399) 11/18/24: MPV 9.2 fL (7.4-10.4) 11/18/24: Neut % (Auto) 50.7 % 11/18/24: Lymph % (Auto) 41.0 % 11/18/24: Hayes % (Auto) 5.6 % 11/18/24: Eos % (Auto) 1.7 % 11/18/24: Baso % (Auto) 0.6 % 11/18/24: Neut # (Auto) 5.47 10^3/uL (1.8-7.7) 11/18/24: Lymph # (Auto) 4.4 10^3/uL (0.8-4.8) 11/18/24: Hayes # (Auto) 0.6 10^3/uL (0.2-0.9) 11/18/24: Eos # (Auto) 0.2 10^3/uL (0.0-0.8) 11/18/24 20:26 Baso # (Auto) 0.1 10^3/uL (0.0-0.1) 11/18/24 20: Nucleated RBC % (auto) 0 % 11/18/24 20: Nucleated RBCs # 0.0 /100WBC 11/18/24 20:26 Sodium 136 mmol/L (136-145) 11/18/24 20: Potassium 4.4 mmol/L (3.5-5.1) 11/18/24 20: Chloride 102 mmol/L (98-107) 11/18/24 20: Carbon Dioxide 25 mmol/L (22-29) 11/18/24 20: Anion Gap 13.4 (5-19) 11/18/24 20: BUN 15 mg/dL (6-20) 11/18/24 20: Creatinine 0.6 mg/dL (0.5-0.9) 11/18/24 20: GFR Calculation 123.9 mL/min (90-130) 11/18/24 20: Glucose 92 mg/dL (65-115) 11/18/24 20: Calculated Osmolality 282 mOsm/kg (285-295) L 11/18/24 20: Calcium 9.4 mg/dL (8.5-10.5) 11/18/24 20: Total Bilirubin 0.2 mg/dL (0.15-1.2) 11/18/24 20: AST 13 U/L (0-32) 11/18/24 20: ALT 12 U/L (0-33) 11/18/24 20: Alkaline Phosphatase 55 U/L (35-105) 11/18/24 20: Total Protein 7.3 g/dL (6.6-8.7) 11/18/24 20: Albumin 4.6 g/dL (3.5-5.2) 11/18/24 20: Globulin 2.7 g/dL (1.3-4.6) 11/18/24 20:26 Lipase 25 U/L (13-60) 11/18/24 20: HCG, Qual Negative (Negative) 11/18/24:57 Urine Color Yellow (Yellow) 11/18/24:57 Urine Appearance Clear (CLEAR) 08/09/25 20:57 Urine pH 7.0 (5-7) 11/18/24 20:57 Ur Specific [place] 1.016 (1.005-1.030) 11/18/24 20:57 Urine Protein Negative (Negative) 11/18/24 20:57 Urine Glucose (UA) Negative (Normal) 11/18/24 20:57 Urine Ketones Negative (Negative) 11/18/24 20:57 Urine Blood Negative (Negative) 11/18/24 20:57 Urine Nitrate Negative (Negative) 11/18/24 20:57 Urine Bilirubin Negative (Negative) 11/18/24 20:57 Urine Urobilinogen 1.0 mg/dL (Negative) 11/18/24 20:57 Ur Leukocyte Esterase Negative (Negative) 11/18/24 20:57 Urine RBC 0-2 /hpf (0-2) 11/18/24 20:57 Urine WBC 0-5 /hpf (0-5) 11/18/24 20:57 Ur Squamous Epith Cells 0-5 /hpf (0-5) 11/18/24 20:57 Amorphous Sediment Not Reportable 11/18/24 20:57 Urine Bacteria None seen /hpf (NONE) 11/18/24 20:57 Hyaline Casts 0-4 /lpf H 11/18/24 20:57 Urine Opiates Screen Negative ng/mL (Negative) 11/18/24 20:57 Ur Barbiturates Screen Negative ng/mL (Negative) 11/18/24 20:57 Ur Phencyclidine Scrn Negative ng/mL (Negative) 11/18/24 20:57 Ur Amphetamines Screen Negative ng/mL (Negative) 11/18/24 20:57 U Benzodiazepines Scrn Negative ng/mL (Negative) 11/18/24 20:57 Urine Cocaine Screen Negative ng/mL (Negative) 11/18/24 20:57 U Marijuana (THC) Screen Positive ng/mL (Negative) H 11/18/24 20:57 All radiology interpretation(s) finalized by discharge Discharge Plan Discharge Patient Disposition: Home Clinical Impression: Nausea & vomiting Qualifiers: Vomiting type: unspecified Qualified Code(s): R11.2 - Nausea with vomiting, unspecified Condition: Stable Prescriptions: New promethazine 25 mg tablet 25 mg PO TID Qty: 20 0RF promethazine 25 mg suppository 25 mg CO Q6H PRN (Reason: nausea and vomiting) Qty: 12 0RF No Action (DME) Holdrege Splint, right fifth digit See Rx Instructions .Route .MEDSUPPLY Qty: 1 0RF Rx Instructions: As directed (DME) Holdrege Splint, right fifth digit See Rx Instructions .Route .MEDSUPPLY Qty: 1 0RF Rx Instructions: As directed (DME) fast form splint, right See Rx Instructions .Route .MEDSUPPLY Qty: 1 0RF Rx Instructions: As directed Naprosyn 500 mg tablet 500 mg PO BID PRN (Reason: pain) Qty: 20 0RF diclofenac sodium 75 mg tablet,delayed release (DR/EC) 75 mg PO Q12H PRN (Reason: pain) Qty: 20 0RF Discharge Orders: Discharge ED (Routine); Ordered 11/18/24 Ordered By: Lewis Torres Referrals: Sam Arvizu MD [Primary Care Provider, [facility]] Patient Instructions: Patient Portal & [place] Instructions Activity Restrictions/Additional Instructions: Nausea discharge plan Thank you for coming to the Emergency Department. Today?s testing did not show a dangerous cause for the nausea and vomiting. Because symptoms have been going on for a year, a referral to general surgery has been placed to help with further evaluation. Below is a plan to help feel better and to know when to seek more care. Medications prescribed today - Promethazine (Phenergan) tablets 25 mg: Take 25 mg by mouth when nausea is present. If needed, a dose may be repeated every 4?6 hours. Do not exceed the smallest amount that controls symptoms. This medicine can make people sleepy; avoid driving or alcohol when taking it. - Promethazine (Promethegan) suppositories 25 mg: Use rectally if tablets cannot be kept down due to vomiting. Insert 25 mg into the rectum when nauseated; if needed, may repeat every 4?6 hours. Use only in the rectum. This can also cause sleepiness; avoid driving or alcohol. Important safety notes for promethazine - Can cause drowsiness, dizziness, and dry mouth. Get up slowly to prevent falls. - Do not combine with alcohol, sleep aids, or other medicines that cause drowsiness unless told by a clinician. - If or planning , or if there is liver, kidney, heart rhythm, or breathing problems, share this with the care team before using. - Keep out of reach of children. Promethazine should never be used in children under 2 years old. How to manage nausea and vomiting at home - Hydration: - Take small, frequent sips of fluids (water, oral rehydration solution, broths, or electrolyte drinks). Aim for pale yellow urine. - If vomiting, try 1?2 tablespoons (15?30 mL) of fluid every 10?15 minutes, and slowly increase as tolerated. - Eating: - Start with small, bland meals (crackers, toast, rice, bananas, applesauce, broth). Avoid greasy, spicy, or very sweet foods until feeling better. - Eat small amounts more often rather than large meals. - Reduce triggers: - Avoid strong smells, very hot rooms, or motion until symptoms improve. - Alicia or acupressure: - Some people find alicia products or wrist acupressure bands helpful. - Other medicines: - Anti-nausea medicines work best when used for the shortest time needed. If promethazine causes too much drowsiness or isn?t enough, speak with the care team; other options such as ondansetron or dopamine antagonists are sometimes used depending on the cause. Marijuana and nausea/vomiting - Marijuana can sometimes make nausea and vomiting worse or even cause a condition called cannabinoid hyperemesis syndrome (CHS), which includes repeated bouts of vomiting and belly pain in people who use cannabis regularly. - Stopping cannabis is important if it might be contributing to symptoms. If stopping is hard, ask about support options. In CHS, hot showers, certain anti-nausea medicines (like promethazine), and topical capsaicin can help in the short term, but long-term improvement generally requires stopping cannabis. Follow-up - An appointment with general surgery has been requested to continue evaluating long-standing symptoms. - Keep a symptom diary: when nausea happens, what was eaten, any triggers, and which treatments helped. Bring this to follow-up. This can help narrow down causes and personalize treatment. When to seek urgent care - Signs of dehydration: very dark urine or not urinating for 8?12 hours, dizziness or fainting, very dry mouth, fast heartbeat. - Vomiting blood or material that looks like coffee grounds; black or bloody stools. - Severe belly pain, chest pain, very bad headache, stiff neck, confusion, or fever. - Vomiting that does not improve enough to keep down fluids for more than 12?24 hours. - New or positive test with persistent vomiting. Tips for taking suppositories - Wash hands. If the suppository is soft, chill it for a few minutes first. - Lie on the side, gently insert the suppository into the rectum about 1 inch (2?3 cm), and remain lying for a few minutes. - Avoid bowel movements for at least 15?30 minutes so the medicine can absorb. What to expect - Many people feel better within hours of starting medication and careful hydration. Because symptoms have been present for a long time, further testing may be needed if symptoms continue despite these steps. Stand Alone Forms: Work/School Release Print Language: Serbian Coding Level of Care Code ED [employer] for [employer] Fwd Documented by User: Pedro Messina DO 11/19/24 02:59 HPI - Nausea/Vomiting/Diarrhea General: Chief complaint: Nausea/Vomiting/Diarrhea Stated complaint: n/v. not preg. Time Seen by Provider: 11/18/24 19:58 Related Data Previous Rx's ?Medication ?Instructions ?Recorded naproxen 500 mg tablet (Naprosyn) 500 mg PO BID PRN pain #20 tabs 06/28/23 Holdrege Splint, right fifth digit #1 ea 07/02/23 Holdrege Splint, right fifth digit #1 ea 07/02/23 fast form splint, right #1 ea 07/19/23 diclofenac sodium 75 mg 75 mg PO Q12H PRN pain #20 tabs 09/23/24 tablet,delayed release promethazine 25 mg rectal 25 mg CO Q6H PRN nausea and 11/18/24 suppository vomiting #12 ea promethazine 25 mg tablet 25 mg PO TID #20 tabs 11/18/24 Allergies Allergy/AdvReac Type Severity Reaction Status Date / Time No Known Allergies Allergy Verified 11/18/24 20:03 PFSH ED PFSH: Medical History No pertinent past medical history neghx: htn,dm,dvt/pe Surgical History No history of previous surgery Family History Grandmother Breast cancer Mother Hyperlipidemia Hypertension Stroke Family history of thyroid problem Family history of premature coronary artery disease Grandfather Family history of thyroid problem Maternal grandfather Family/Other Family history of thyroid problem Maternal uncle Social History Smoking and tobacco/nicotine status: current some day tobacco/nicotine user e-cigarettes E-Cigarette Details: vaporizer device and with nicotine Second hand smoke exposure: No Alcohol intake: never Substance/Drug Use: current Substance/Drug use frequency: few times a month Course Vital Signs: Vital signs: Vital Signs Temperature 97.6 F 11/18/24 20:00 Pulse Rate 66 11/18/24 21:48 Respiratory Rate 16 11/18/24 21:48 Blood Pressure 117/77 11/18/24 21:48 Pulse Oximetry 99 11/18/24 21:48 MDM - Nausea/Vomiting/Diarrhea Medical Decision Making Patient has had a year of nausea and vomiting, states that she takes Zofran regularly and also smokes marijuana daily. She has never seen a provider for this other than initial onset of symptoms where she states she had colonoscopy showing gastroenteritis. At this time she has no specific new complaints, just states that she is concerned with the longevity of symptoms. Vitals have been stable throughout her ED course. The physical exam was normal. Her lab work does not show any abnormalities, normal CBC and metabolic panel. Urinalysis negative, negative, lipase negative. Drug screen showing positive for marijuana, cannot rule out that this may be contributing to her symptoms. With the longevity of her symptoms, and no reliable follow-up with primary care I will go ahead and refer her to general surgery for general reevaluation. She is given Phenergan p.o. and CO to take at home alternating, and other general return precautions discussed. She did note to me that she has had anxiety over the same timeframe, so 0.5 Ativan through the IV was attempted to see if this helps her symptoms and she states that she feels about the same. Less likely that this is the cause. This patient was originally seen by Mr. Brian PA-C. I agree with his history, evaluation, and management. Lab Data 11/18/24 20:11/18/24 20: Laboratory Results WBC 10.76 10^3/uL (3.29-11.43) 11/18/24: RBC 5.05 10^6/uL (3.85-5.65) 11/18/24 20: Hgb 13.20 g/dL (11.27-16.99) 11/18/24: Hct 41.9 % (36-47) 11/18/24: MCV 83.0 fl (85-98) L 11/18/24: MCH 26.1 pg (27-33) L 11/18/24: MCHC 31.5 g/dL (30-55) 11/18/24: RDW 13.4 % (12.1-15.1) 11/18/24: Plt Count 230 10^3/cmm (157-399) 11/18/24: MPV 9.2 fL (7.4-10.4) 11/18/24: Neut % (Auto) 50.7 % 11/18/24: Lymph % (Auto) 41.0 % 11/18/24: Hayes % (Auto) 5.6 % 11/18/24: Eos % (Auto) 1.7 % 11/18/24: Baso % (Auto) 0.6 % 11/18/24: Neut # (Auto) 5.47 10^3/uL (1.8-7.7) 11/18/24: Lymph # (Auto) 4.4 10^3/uL (0.8-4.8) 11/18/24: Hayes # (Auto) 0.6 10^3/uL (0.2-0.9) 11/18/24: Eos # (Auto) 0.2 10^3/uL (0.0-0.8) 11/18/24: Baso # (Auto) 0.1 10^3/uL (0.0-0.1) 11/18/24 20: Nucleated RBC % (auto) 0 % 11/18/24 20: Nucleated RBCs # 0.0 /100WBC 11/18/24 20: Sodium 136 mmol/L (136-145) 11/18/24 20: Potassium 4.4 mmol/L (3.5-5.1) 11/18/24 20: Chloride 102 mmol/L (98-107) 11/18/24 20: Carbon Dioxide 25 mmol/L (22-29) 11/18/24 20: Anion Gap 13.4 (5-19) 11/18/24 20: BUN 15 mg/dL (6-20) 11/18/24 20: Creatinine 0.6 mg/dL (0.5-0.9) 11/18/24 20: GFR Calculation 123.9 mL/min (90-130) 11/18/24 20: Glucose 92 mg/dL (65-115) 11/18/24 20: Calculated Osmolality 282 mOsm/kg (285-295) L 11/18/24 20: Calcium 9.4 mg/dL (8.5-10.5) 11/18/24 20: Total Bilirubin 0.2 mg/dL (0.15-1.2) 11/18/24 20: AST 13 U/L (0-32) 11/18/24: ALT 12 U/L (0-33) 11/18/24 20: Alkaline Phosphatase 55 U/L (35-105) 11/18/24 20: Total Protein 7.3 g/dL (6.6-8.7) 11/18/24 20: Albumin 4.6 g/dL (3.5-5.2) 11/18/24: Globulin 2.7 g/dL (1.3-4.6) 11/18/24 20: Lipase 25 U/L (13-60) 11/18/24 20: HCG, Qual Negative (Negative) 11/18/24:57 Urine Color Yellow (Yellow) 11/18/24:57 Urine Appearance Clear (CLEAR) 11/18/24 20:57 Urine pH 7.0 (5-7) 11/18/24 20:57 Ur Specific [place] 1.016 (1.005-1.030) 11/18/24 20:57 Urine Protein Negative (Negative) 11/18/24 20:57 Urine Glucose (UA) Negative (Normal) 11/18/24 20:57 Urine Ketones Negative (Negative) 11/18/24 20:57 Urine Blood Negative (Negative) 11/18/24 20:57 Urine Nitrate Negative (Negative) 11/18/24 20:57 Urine Bilirubin Negative (Negative) 11/18/24 20:57 Urine Urobilinogen 1.0 mg/dL (Negative) 11/18/24 20:57 Ur Leukocyte Esterase Negative (Negative) 11/18/24 20:57 Urine RBC 0-2 /hpf (0-2) 11/18/24 20:57 Urine WBC 0-5 /hpf (0-5) 11/18/24 20:57 Ur Squamous Epith Cells 0-5 /hpf (0-5) 11/18/24 20:57 Amorphous Sediment Not Reportable 11/18/24 20:57 Urine Bacteria None seen /hpf (NONE) 11/18/24 20:57 Hyaline Casts 0-4 /lpf H 11/18/24 20:57 Urine Opiates Screen Negative ng/mL (Negative) 11/18/24 20:57 Ur Barbiturates Screen Negative ng/mL (Negative) 11/18/24 20:57 Ur Phencyclidine Scrn Negative ng/mL (Negative) 11/18/24 20:57 Ur Amphetamines Screen Negative ng/mL (Negative) 11/18/24 20:57 U Benzodiazepines Scrn Negative ng/mL (Negative) 11/18/24 20:57 Urine Cocaine Screen Negative ng/mL (Negative) 11/18/24 20:57 U Marijuana (THC) Screen Positive ng/mL (Negative) H 11/18/24 20:57 Discharge Plan Discharge Patient Disposition: Home Clinical Impression: Nausea & vomiting Qualifiers: Vomiting type: unspecified Qualified Code(s): R11.2 - Nausea with vomiting, unspecified Condition: Stable Prescriptions: New promethazine 25 mg tablet 25 mg PO TID Qty: 20 0RF promethazine 25 mg suppository 25 mg CO Q6H PRN (Reason: nausea and vomiting) Qty: 12 0RF No Action (DME) Holdrege Splint, right fifth digit See Rx Instructions .Route .MEDSUPPLY Qty: 1 0RF Rx Instructions: As directed (DME) Holdrege Splint, right fifth digit See Rx Instructions .Route .MEDSUPPLY Qty: 1 0RF Rx Instructions: As directed (DME) fast form splint, right See Rx Instructions .Route .MEDSUPPLY Qty: 1 0RF Rx Instructions: As directed Naprosyn 500 mg tablet 500 mg PO BID PRN (Reason: pain) Qty: 20 0RF diclofenac sodium 75 mg tablet,delayed release (DR/EC) 75 mg PO Q12H PRN (Reason: pain) Qty: 20 0RF Discharge Orders: Discharge ED (Routine); Ordered 11/18/24 Ordered By: Lewis Torres Referrals: Sam Arvizu MD [Primary Care Provider, [facility]] Patient Instructions: Patient Portal & [place] Instructions Activity Restrictions/Additional Instructions: Nausea discharge plan Thank you for coming to the Emergency Department. Today?s testing did not show a dangerous cause for the nausea and vomiting. Because symptoms have been going on for a year, a referral to general surgery has been placed to help with further evaluation. Below is a plan to help feel better and to know when to seek more care. Medications prescribed today - Promethazine (Phenergan) tablets 25 mg: Take 25 mg by mouth when nausea is present. If needed, a dose may be repeated every 4?6 hours. Do not exceed the smallest amount that controls symptoms. This medicine can make people sleepy; avoid driving or alcohol when taking it. - Promethazine (Promethegan) suppositories 25 mg: Use rectally if tablets cannot be kept down due to vomiting. Insert 25 mg into the rectum when nauseated; if needed, may repeat every 4?6 hours. Use only in the rectum. This can also cause sleepiness; avoid driving or alcohol. Important safety notes for promethazine - Can cause drowsiness, dizziness, and dry mouth. Get up slowly to prevent falls. - Do not combine with alcohol, sleep aids, or other medicines that cause drowsiness unless told by a clinician. - If or planning , or if there is liver, kidney, heart rhythm, or breathing problems, share this with the care team before using. - Keep out of reach of children. Promethazine should never be used in children under 2 years old. How to manage nausea and vomiting at home - Hydration: - Take small, frequent sips of fluids (water, oral rehydration solution, broths, or electrolyte drinks). Aim for pale yellow urine. - If vomiting, try 1?2 tablespoons (15?30 mL) of fluid every 10?15 minutes, and slowly increase as tolerated. - Eating: - Start with small, bland meals (crackers, toast, rice, bananas, applesauce, broth). Avoid greasy, spicy, or very sweet foods until feeling better. - Eat small amounts more often rather than large meals. - Reduce triggers: - Avoid strong smells, very hot rooms, or motion until symptoms improve. - Laicia or acupressure: - Some people find alicia products or wrist acupressure bands helpful. - Other medicines: - Anti-nausea medicines work best when used for the shortest time needed. If promethazine causes too much drowsiness or isn?t enough, speak with the care team; other options such as ondansetron or dopamine antagonists are sometimes used depending on the cause. Marijuana and nausea/vomiting - Marijuana can sometimes make nausea and vomiting worse or even cause a condition called cannabinoid hyperemesis syndrome (CHS), which includes repeated bouts of vomiting and belly pain in people who use cannabis regularly. - Stopping cannabis is important if it might be contributing to symptoms. If stopping is hard, ask about support options. In CHS, hot showers, certain anti-nausea medicines (like promethazine), and topical capsaicin can help in the short term, but long-term improvement generally requires stopping cannabis. Follow-up - An appointment with general surgery has been requested to continue evaluating long-standing symptoms. - Keep a symptom diary: when nausea happens, what was eaten, any triggers, and which treatments helped. Bring this to follow-up. This can help narrow down causes and personalize treatment. When to seek urgent care - Signs of dehydration: very dark urine or not urinating for 8?12 hours, dizziness or fainting, very dry mouth, fast heartbeat. - Vomiting blood or material that looks like coffee grounds; black or bloody stools. - Severe belly pain, chest pain, very bad headache, stiff neck, confusion, or fever. - Vomiting that does not improve enough to keep down fluids for more than 12?24 hours. - New or positive test with persistent vomiting. Tips for taking suppositories - Wash hands. If the suppository is soft, chill it for a few minutes first. - Lie on the side, gently insert the suppository into the rectum about 1 inch (2?3 cm), and remain lying for a few minutes. - Avoid bowel movements for at least 15?30 minutes so the medicine can absorb. What to expect - Many people feel better within hours of starting medication and careful hydration. Because symptoms have been present for a long time, further testing may be needed if symptoms continue despite these steps. Stand Alone Forms: Work/School Release Print Language: Serbian Coding Level of Care Code ED [employer] for Ivett Martinez
--- NOTE | 2024-11-20 08:02 | DCPLANNER ---
messaged gen surg for er f/u
== END 2024-11-18 21:49 | disposition home or self-care (01) ==
PROVIDERS: Emergency Provider Physician Assistant; PCP Family Medicine
DX: R11.2 Nausea with vomiting, unspecified (principal); F17.290 Nicotine dependence, other tobacco product, uncomplicated
CPT/HCPCS: 36415; 80053; 80306; 81001; 81025; 83690; 85025; 96361; 96374; 99284; J2060; J7030; Q0169

== ENCOUNTER 2025-02-19 07:49 | Day surgery (SDC) | payer MEDICAID, SELFPAY ==
[2025-02-19 08:00] VITALS: BP 113/77; PULSE 97; RESP 16; TEMP 36.6; O2SAT 99; BMI 19.8
[2025-02-19 08:10] LABS: OR HCG Qualitative Urine Negative (Negative)
--- NOTE | 2025-02-19 08:19 | W.PM.OPSUD ---
Surgery/Procedure H&P Update DATE OF PROCEDURE: February 19, 2025 DATE H&P PERFORMED: 02/12/25 H&P UPDATE INFORMATION: I have reviewed H&P completed within last 30 days, I have examined patient prior to procedure, No changes to prior documentation and Risks and benefits of the procedure reviewed PLANNED PROCEDURE: Operation Date: 02/19/25 09:00 Proposed Procedures p EGD EGD with Biopsy 63875 R11.2(Not Applicable) - Hemanth Pratt MD
--- NOTE | 2025-02-19 08:24 | ANES.PREANE2 ---
Pre-Anesthetic Assessment Height/Weight: Height 1.78 m Weight 62.596 kg Temp Pulse Resp BP Pulse Ox O2 Del Method 97.9 F 97 16 113/77 99 Room Air 02/19/25 08:00 02/19/25 08:00 02/19/25 08:00 02/19/25 08:00 02/19/25 08:00 02/19/25 08:00 Operation Date: 02/19/25 09:00 Proposed Procedures p EGD EGD with Biopsy 40598 R11.2(Not Applicable) - Hemanth Pratt MD Familial anesthetic complications: none Was Beta Jose A taken within 24 hours: N/A Was Clonidine taken within 24 hours: N/A Last intake: Intake Last Liquid Date 02/18/25 Last Liquid Time 20:00 Last Solid Date 02/18/25 Last Solid Time 20:00 Social No alcohol and No tobacco Exam alert, oriented x 3, clear to auscultation bilaterally and regular rate & rhythm Airway Mallampati: Class II Dentition: full GI Gastroesophageal Reflux Disease Anesthetic Plan ASA status: 1 Anesthesia: MAC Risk of > 500 ml blood loss (7ml/kg in children): No Medications/Allergies Home Medications ?Medication ?Instructions ?Recorded ?Confirmed ?Last Taken ?Type [place] Splint, right fifth digit #1 ea 07/02/23 02/12/25 Unknown Rx [place] Splint, right fifth digit #1 ea 07/02/23 02/12/25 Unknown Rx fast form splint, right #1 ea 07/19/23 02/12/25 Unknown Rx promethazine 25 mg rectal 25 mg RI Q6H PRN nausea and 11/18/24 02/14/25 Unknown Rx suppository vomiting #12 ea promethazine 25 mg tablet 25 mg PO TID #20 tabs 11/18/24 02/14/25 3 Months Ago Rx ~11/14/24 bupropion HCl 150 mg 24 hr tablet, 150 mg PO QAM 02/12/25 02/14/25 02/17/25 History extended release (Wellbutrin XL) pantoprazole 20 mg tablet,delayed 20 mg PO DAILY 02/12/25 02/14/25 02/17/25 History release Allergies Allergy/AdvReac Type Severity Reaction Status Date / Time No Known Allergies Allergy Verified 02/19/25 07:58 Current Medications Generic Name Dose Route Start Last Admin Trade Name Freq PRN Reason Stop Dose Admin Sodium Chloride 1,000 mls @ 15 mls/hr 02/19/25 07:53 02/19/25 08:12 Sodium Chloride 0.9% IV 02/20/25 07:52 15 mls/hr .Q24H PRN Administration COLONOSCOPY FLUIDS PFSH Anesthesia Medical History No pertinent past medical history neghx: htn,dm,dvt/pe Surgical History No history of previous surgery Family History Grandmother Breast cancer Mother Hyperlipidemia Hypertension Stroke Family history of thyroid problem Family history of premature coronary artery disease Grandfather Family history of thyroid problem Maternal grandfather Family/Other Family history of thyroid problem Maternal uncle Social History Smoking and tobacco/nicotine status: current some day tobacco/nicotine user e-cigarettes E-Cigarette Details: vaporizer device and with nicotine Second hand smoke exposure: No Alcohol intake: never Substance/Drug Use: current Substance/Drug use frequency: few times a month
--- NOTE | 2025-02-19 09:00 | ANE.PACU2 ---
Inpatient post-anesthesia follow up: Airway intact: Yes Vital signs: Temperature 97.9 F Pulse Rate 97 Respiratory Rate 16 Blood Pressure 113/77 Pulse Oximetry 99 Oxygen Delivery Me thod Room Air Oxygen Flow Rate Fraction of Inspir ed Oxygen Hydration adequate: Yes Nausea and vomiting: No Pain level: 1 Mental status: Baseline
== END 2025-02-19 09:03 | disposition home or self-care (01) ==
PROVIDERS: Anesthesiology; PCP Family Medicine; Visit Provider Student in an Organized Health Care Education/Training Program
PROC: 0DJ08ZZ Inspection of Upper Intestinal Tract, Via Natural or Artificial Opening Endoscopic (ICD-10-PCS; principal; 2025-02-19 09:00)
DX: R12 Heartburn (principal); K29.70 Gastritis, unspecified, without bleeding; K21.9 Gastro-esophageal reflux disease without esophagitis; F17.290 Nicotine dependence, other tobacco product, uncomplicated; I10 Essential (primary) hypertension
CPT/HCPCS: 43239; 81025; 88305; J2704; J7030